=== PATIENT | male | born 1960 | race Caucasian/White ===

== ENCOUNTER 2024-05-08 11:39 | Inpatient (IN) | payer OTHER, SELFPAY ==
[2024-05-06] VITALS (8 sets, daily range): BP systolic 154–172; BP diastolic 77–104; BMI 38.8; BMI 37.9
[2024-05-06 17:50] LABS: % Basophils 0.4 % (0-2); % Eosinophils 1.1 % (0-6); % Immature Granulocytes 0.3 % (0-0.5); % Lymphocytes 19.3 % (20.5-51.1); % Monocytes 8.5 % (1.7-9.3); % Neutrophils 70.4 % (42.2-75.2); Absolute Eosinophils 0.1 10^3/uL (0-0.7); Absolute Monocytes 0.9 10^3/uL (0.1-0.6); Absolute Neutrophils 7.1 10^3/uL (1.4-6.5); Hematocrit 40.5 % (39.0-52.0); Mean Corp Hgb Conc. 32.1 g/dL (33.0-37.0); Mean Corpuscular Hgb 31.6 pg (27.0-31.0); Mean Corpuscular Volume 98.3 fL (80.0-94.0); Mean Platelet Volume 9.8 fL (7.4-10.4); Nucleated Red Blood Cells % 0 % (-); Platelet Count 217 10^3/uL (130-400); Red Blood Cell Count 4.12 10^6/uL (4.70-6.10); Red Cell Dist. Width 14.2 % (11.5-14.5); White Blood Cell Count 10.1 10^3/uL (4.8-10.8)
[2024-05-06 18:06] LABS: ALT (SGPT) 29 U/L (0-50); AST (SGOT) 30 U/L (17-59); Alkaline Phosphatase 58 U/L (38-126); Blood Urea Nitrogen 17 mg/dl (9-20); Calcium 9.2 mg/dl (8.4-10.2); Carbon Dioxide 30 mmol/L (22-30); Chloride 101 mmol/L (98-107); Glucose 126 mg/dl (70-99); Lipase 209 U/L (23-300); Potassium 4.6 mmol/L (3.5-5.1); Sodium 140 mmol/L (135-145); Total Bilirubin 0.5 mg/dl (0.2-1.3); Total Protein 7.5 g/dl (6.3-8.2); eGFR > 60.00
--- NOTE | 2024-05-06 19:46 | ED.GENMED ---
History of Present Illness
<Leisa Gandara PA-C - Last Filed: 05/06/24 23:57>
General
Chief Complaint: Abdominal Symptoms
Source: patient
Exam Limitations: none
Time Seen by Provider: 05/06/24 19:25
Nursing documentation reviewed up to this point in time: agreed with
History of Present Illness
History of Present Illness:
Patient is a 63-year-old male with no known past medical history presenting to the emergency department from his primary care provider's office due to abdominal distention. Patient states that over the past year he has noticed gradual increase in
size of his abdomen. He also has had shortness of breath with exertion. In addition�she has had significant swelling of his lower extremities.
He does believe that lower extremity swelling and abdominal distention has mildly the past month or so.
Patient denies any chest pain, abdominal pain, diarrhea/constipation, urinary symptoms. He denies any recent fever or chills.
Patient has not been seen by his primary care physician in over 2 years.
Review of Systems
<Leisa Gandara PA-C - Last Filed: 05/06/24 23:57>
Review of Systems
Allergies reviewed?: Yes
All Other Systems: ROS reviewed and negative except as documented in HPI and ROS
Phy Exam
<Leisa Gandara PA-C - Last Filed: 05/06/24 23:57>
Physical Exam
Physical Exam:
Vitals: Hypertensive, otherwise vital signs are stable. Afebrile
General: Patient is well appearing, no acute distress
Skin: Warm and dry, no rashes or lesions. Venous stasis changes of bilateral lower extremities.
Head: Normocephalic, atraumatic
Eyes: Sclera nonicteric. EOMs intact. No nystagmus.
Throat: Protecting airway
Neck: Normal ROM, no cervical spine tenderness, no meningismus
Cardiac: Regular rate and rhythm. Harsh midsystolic murmur at right upper sternal border.
Pulm: Mildly increased respiratory effort. Oxygen saturation 97% on room air. Fine crackles in bilateral lung bases. No wheezing
Abdomen: Abdomen distended. Soft and nontender. No CVA tenderness
Extremities: 2+ pitting edema bilateral lower extremities with chronic venous stasis changes. Palpable DP pulses bilaterally. Negative Homans' sign bilaterally.
Neuro: AAOx3. Grossly intact.
Psychiatric: Normal affect.
Course
<Leisa Gandara PA-C - Last Filed: 05/06/24 23:57>
Orders/Labs/Results
Orders:
Orders
05/06/24 Dinner
Cholesterol Lowering
At Your Request: Limited Participation
Cholesterol Lowering: Sodium, 2 Gram
05/06/24 17:28
Electrocardiogram (*1) Urgent
Reason for Study: Abdominal Pain
EKG- Treatment ONCE
05/06/24 17:41
Complete Blood Count/With Diff Urgent
Comprehensive Metabolic Panel Urgent
Lipase Urgent
05/06/24 19:43
CR Chest - 2 Views Urgent
Comment:
Reason For Exam: SOB,
05/06/24 19:51
NT-proBNP Urgent
Troponin I Urgent
05/06/24 20:31
Furosemide [Lasix] 40 mg IV NOW STA
05/06/24 21:25
Admit/Transfer Patient As Directed
Co-Sign Provider:
Level of Care: Observation services
Assign to:: Telemetry
Physician / Group: abdoulaye
Diagnosis: chf exacerbation
Reason for Telemetry: Acute Heart Failure
Date to Stop Telemetry: 05/09/24
Time to Stop Telemetry: 11:00
PRN Pain Medication Management As Directed
May give lesser potent ordered pain med per pt: Yes
preference::
Protocol:: Medication orders for pain may be administered in a
manner that supports deferring to patient preference
when the pt is:
- Requesting an ordered lesser potent pain medication.
Least to most potent pain medications are defined
as: acetaminophen < NSAID < tramadol < opioids
(morphine, oxycodone, hydromorphone).
- Requesting a lesser dose of the same medication IF
ORDERED.
- Requesting a less intrusive route of administration
if both routes are prescribed by the provider (PO <
IV).
05/06/24 21:26
Code Status As Directed
Resuscitation Status: Full Code
05/06/24 22:00
Flush (0.9% Sodium Chloride) [Flush (Nss)] See Dose Instructions IV PER PROTOCOL
05/06/24 22:32
Echo 2D MMode Color/Doppler Routine
Reason for Study: heart failure
Activity As Directed
Activity Level: As Tolerated
Intake/ Output As Directed
Frequency: q12h
Patient Education As Directed
Type: CHF folder
Comment: give on admission. Document in Interdisciplinary Education record
Sleep Apnea Assessment by RN As Directed
Comment:
Physician Instructions:
Vital Signs As Directed
Frequency: Other
Additional Instructions:: Q12 or per unit guidelines if more frequent.
Weight As Directed
Frequency: Daily
Type of Scale: Standing Scale
Comment: Daily morning weight. If unable to stand, use balanced bed scale.
Weight As Directed
Frequency: Once
Type of Scale: Standing Scale
Comment: Upon Admission. If unable to stand, use balanced bed scale.
Pulse Ox/cont/shift [RESP] Routine
Quantity: 1
Special Instructions: Daily pulse oximetry at rest. If greater than 92% at rest also obtain pulse oximetry
while ambulating as tolerated.
DX Deep Vein Thrombosis Video Routine
05/07/24 06:00
Complete Blood Count/With Diff IN AM
Comprehensive Metabolic Panel IN AM
05/07/24 08:00
Furosemide [Lasix] 40 mg IV DAILY
Heparin 5,000 units SC Q12
05/09/24 11:00
DC Protocol for Telemetry ONCE
Abnormal Lab Results
05/06/24
17:41
RBC 4.12 L 10^6/uL
(4.70-6.10)
MCV 98.3 H fL
(80.0-94.0)
MCH 31.6 H pg
(27.0-31.0)
MCHC 32.1 L g/dL
(33.0-37.0)
Absolute Neuts (auto) 7.1 H 10^3/uL
(1.4-6.5)
Absolute Monos (auto) 0.9 H 10^3/uL
(0.1-0.6)
Lymphocytes % 19.3 L %
(20.5-51.1)
Glucose 126 H mg/dl
(70-99)
05/06/24 17:41
05/06/24 17:41
Vital Signs
Initial and Last Documented VS:
Initial Vital Signs
Temp Pulse Resp BP Pulse Ox
98.5 F 96 16 170/101 97
05/06/24 17:23 05/06/24 17:23 05/06/24 17:23 05/06/24 17:23 05/06/24 17:23
Last Documented Vital Signs
Temp Pulse Resp BP Pulse Ox
98.3 F 96 18 155/81 95
05/06/24 22:40 05/06/24 22:40 05/06/24 22:40 05/06/24 22:40 05/06/24 22:40
<Misha Hui MD - Last Filed: 05/06/24 20:51>
Orders/Labs/Results
Orders:
Orders
05/06/24 Dinner
Cholesterol Lowering
At Your Request: Limited Participation
Cholesterol Lowering: Sodium, 2 Gram
05/06/24 17:28
Electrocardiogram (*1) Urgent
Reason for Study: Abdominal Pain
EKG- Treatment ONCE
05/06/24 17:41
Complete Blood Count/With Diff Urgent
Comprehensive Metabolic Panel Urgent
Lipase Urgent
05/06/24 19:43
CR Chest - 2 Views Urgent
Comment:
Reason For Exam: SOB,
05/06/24 19:51
NT-proBNP Urgent
Troponin I Urgent
05/06/24 20:31
Furosemide [Lasix] 40 mg IV NOW STA
05/06/24 21:25
Admit/Transfer Patient As Directed
Co-Sign Provider:
Level of Care: Observation services
Assign to:: Telemetry
Physician / Group: abdoulaye
Diagnosis: chf exacerbation
Reason for Telemetry: Acute Heart Failure
Date to Stop Telemetry: 05/09/24
Time to Stop Telemetry: 11:00
PRN Pain Medication Management As Directed
May give lesser potent ordered pain med per pt: Yes
preference::
Protocol:: Medication orders for pain may be administered in a
manner that supports deferring to patient preference
when the pt is:
- Requesting an ordered lesser potent pain medication.
Least to most potent pain medications are defined
as: acetaminophen < NSAID < tramadol < opioids
(morphine, oxycodone, hydromorphone).
- Requesting a lesser dose of the same medication IF
ORDERED.
- Requesting a less intrusive route of administration
if both routes are prescribed by the provider (PO <
IV).
05/06/24 21:26
Code Status As Directed
Resuscitation Status: Full Code
05/06/24 22:00
Flush (0.9% Sodium Chloride) [Flush (Nss)] See Dose Instructions IV PER PROTOCOL
05/06/24 22:32
Echo 2D MMode Color/Doppler Routine
Reason for Study: heart failure
Activity As Directed
Activity Level: As Tolerated
Intake/ Output As Directed
Frequency: q12h
Patient Education As Directed
Type: CHF folder
Comment: give on admission. Document in Interdisciplinary Education record
Sleep Apnea Assessment by RN As Directed
Comment:
Physician Instructions:
Vital Signs As Directed
Frequency: Other
Additional Instructions:: Q12 or per unit guidelines if more frequent.
Weight As Directed
Frequency: Daily
Type of Scale: Standing Scale
Comment: Daily morning weight. If unable to stand, use balanced bed scale.
Weight As Directed
Frequency: Once
Type of Scale: Standing Scale
Comment: Upon Admission. If unable to stand, use balanced bed scale.
Pulse Ox/cont/shift [RESP] Routine
Quantity: 1
Special Instructions: Daily pulse oximetry at rest. If greater than 92% at rest also obtain pulse oximetry
while ambulating as tolerated.
DX Deep Vein Thrombosis Video Routine
05/07/24 06:00
Complete Blood Count/With Diff IN AM
Comprehensive Metabolic Panel IN AM
05/07/24 08:00
Furosemide [Lasix] 40 mg IV DAILY
Heparin 5,000 units SC Q12
05/09/24 11:00
DC Protocol for Telemetry ONCE
Abnormal Lab Results
05/06/24
17:41
RBC 4.12 L 10^6/uL
(4.70-6.10)
MCV 98.3 H fL
(80.0-94.0)
MCH 31.6 H pg
(27.0-31.0)
MCHC 32.1 L g/dL
(33.0-37.0)
Absolute Neuts (auto) 7.1 H 10^3/uL
(1.4-6.5)
Absolute Monos (auto) 0.9 H 10^3/uL
(0.1-0.6)
Lymphocytes % 19.3 L %
(20.5-51.1)
Glucose 126 H mg/dl
(70-99)
05/06/24 17:41
05/06/24 17:41
Vital Signs
Initial and Last Documented VS:
Initial Vital Signs
Temp Pulse Resp BP Pulse Ox
98.5 F 96 16 170/101 97
05/06/24 17:23 05/06/24 17:23 05/06/24 17:23 05/06/24 17:23 05/06/24 17:23
Last Documented Vital Signs
Temp Pulse Resp BP Pulse Ox
98.3 F 96 18 155/81 95
05/06/24 22:40 05/06/24 22:40 05/06/24 22:40 05/06/24 22:40 05/06/24 22:40
<Leisa Gandara PA-C - Last Filed: 05/06/24 23:57>
MDM/Problems Addressed
Differential Diagnosis Includes:
Not limited to: New onset CHF, pneumonia, liver disease, nephrotic syndrome, chronic venous insufficiency, etc.
MDM/Problems Addressed:
63-year-old male presenting with abdominal distention and progressively worsening dyspnea over the past year. Seen by primary care today and sent to the emergency department. He does also have significant bilateral lower extremity swelling.
Denies any chest pain, cough, abdominal pain, vomiting. Patient is hypertensive, otherwise his vital signs are stable. He is not hypoxic. Physical exam as above. Patient has an obvious murmur, most notable at right upper sternal border. Fine
crackles throughout bilateral lung bases. He has significant 2+ pitting edema bilateral lower extremities with chronic venous insufficiency changes, as well. Palpable distal pulses. Abdomen is elevated BMI and distended although soft and
completely nontender. Patient appears clinically fluid overloaded. Given heart murmur�concern for possible new onset CHF secondary to valvular disease. Basic labs were obtained in triage without any clinically significant abnormalities. Will add
on troponin and proBNP. Will check chest x-ray. Given patient is afebrile with no leukocytosis and a benign abdominal exam�low suspicion for acute intra-abdominal infection�no indication for abdominal imaging at this time.
Chronic conditions affecting care:
N/A
Acute Exacerbation and/or Progression of Chronic Illness:
N/A
<Leisa Gandara PA-C - Last Filed: 05/06/24 23:57>
*Radiology
Radiology exam reviewed: preliminary read by ED provider (Reviewed by me-mild pulmonary edema) and radiology read reviewed
*Pulse Oximetry
Patient hypoxic: no
*EKG
Interpreted by ED Provider?: Yes
EKG Intrepretation Date: 05/06/24
Interpretation: normal
Comparison EKG: no comparison EKG present
Heart Rate: 100
Rate: normal
Rhythm: sinus
[place]: normal axis
Interval: normal interval
QRS Pattern: left vent hypertrophy
Ischemia: non-specific ST changes
*Sales Office Coordinator Interpretation
Rate: normal
Interpretation: normal
Heart Rate: 94
Rhythm: sinus
*Critical Care Note
Total Time (30-74mins, 75-104mins- exclusive of procedures): Not Applicable
<Leisa Gandara PA-C - Last Filed: 05/06/24 23:57>
Patient Management
Discussion with other providers: Hospitalist
Escalation/DeEscalation of care consider admission/obs:
Admit for IV diuresis, cardiology consult, echocardiogram
<Leisa Gandara PA-C - Last Filed: 05/06/24 23:57>
Update Note
Update Note:
Update: Troponin of 0.021. proBNP of 3170. Chest x-ray does show small bilateral pleural effusions and mild pulmonary vascular congestion. Cardiomegaly noted. Concern for possible new onset CHF secondary to valvular disease. Will give 40 IV
Lasix. Patient required mission to the hospital for diuresis, cardiology consult and likely echo. Patient accepted to hospitalist service in stable condition.
ED Attending Note
<Leisa Gandara PA-C - Last Filed: 05/06/24 23:57>
-
Portions of this chart may have been created with voice recognition software.� Occasional wrong word or��sound alike� substitutions may have occurred due to the inherent limitations of voice recognition software.
<Misha Hui MD - Last Filed: 05/06/24 20:51>
ED Attending Note
Patient seen and examined by attending physician: Yes
I performed the substantive portion of visit, reviewed & personally made and approve the management plan that is documented in note by myself or CAROL.: Yes
ED Attending Note:
63-year-old male sent in for vague upper abdominal symptoms but mostly seems to be describing shortness of breath with exertion. Ongoing for the last month. Poor historian. No true abdominal pain no fever no chest pain.
On exam patient is mildly disheveled appearing. He has minimal crackles in both bases with mild tachypnea at rest. He has a harsh midsystolic murmur that radiates to his back and right upper chest. Abdomen is elevated BMI but soft and nontender.
Significant lower extremity edema chronic in appearance bilaterally.
EKG is consistent with LVH. Chest x-ray is consistent with some CHF. Highly suspicious that he is in some heart failure secondary to her valvular issue. Warrants inpatient workup and management.
Discharge Plan
Departure
Patient Disposition: Admit
Date of Disposition: 05/06/24
Time of Disposition: 20:51
Presentation/result/management discussed w/ accepting MD/DO: Hospitalist
Discharge Problem:
Dyspnea, Suspected new onset CHF
Interventions
Interventions:
*Risk Screen - Suicide Last Done: 05/06/24 22:44
*General Assessment Last Done: 05/06/24 17:23
*Neglect/Abuse Screening Last Done: 05/06/24 17:23
*ED COVID-19 Vaccine History Last Done: 05/06/24 22:44
*Nursing Disposition Last Done: 05/06/24 22:31
GZ-Guvsjh-Regdqhoopj Assessment Last Done: 05/06/24 19:40
Discharge Date and Time
Discharge Date/Time: 05/06/24 22:32
[2024-05-06 20:19] LABS: NT-proBNP 3170 pg/ml; Troponin I 0.021 ng/ml
[2024-05-06] MEDS: LASIX 40 MG IV (21:00)
--- NOTE | 2024-05-06 21:30 | HPS.HSE ---
Family Physician
-
Family Physician: Misha Hong
Chief Complaint
-
shortness of breath
History of Present Illness
63-year-old male medical history of HTN presenting with abdominal distention. Over the past year he has noticed gradual increase in the size of his abdomen. He has shortness of breath with exertion and shallow breaths. He has significant swelling
of his lower extremities and feels like the legs are breaking down. He denies any chest pain, abdominal pain, diarrhea constipation, urinary symptoms. He denies any fevers or chills. He has not seen his primary care physician in 2 years.
He denies any history of lung or heart problems.
He used to drink alcohol in the past. He denies smoking.
Medical History
Past Medical History
Past Medical History: Reports HTN
Past Surgical History: Reports Other (Cholecystectomy, scalp surgery)
Social History
Tobacco: Non-smoker
Alcohol: Former
Drug: None
Family History
Family History: Not pertinent
Allergies / Home Medications
Allergies reflects when Allergies were last updated in [facility].
Home Medications with original date entered in [facility]
Allergy/Medication List:
Allergies
Allergy/AdvReac Type Severity Reaction Status Date / Time
No Known Allergies Allergy Unverified 05/06/24 17:28
Home Medications
No Meds [No Current Medications] 05/06/24
Review of Systems
-
History Source: Patient
A 12 point ROS was completed and negative except as noted: Yes
Constitutional: Reports No Symptoms
EENT: Reports No Symptoms
Respiratory: Reports See HPI
Cardiac: Reports See HPI
Abdomen/GI: Reports No Symptoms
: Reports No Symptoms
Musculoskeletal: Reports No Symptoms
Skin: Reports No Symptoms
Neurological: Reports No Symptoms
Endocrine: Reports No Symptoms
Hematologic/Lymphatic: Reports No Symptoms
Psych: Reports No Symptoms
Physical Exam
Vital Signs
Vital Signs
Temp Pulse Resp BP Pulse Ox
98.5 F 92 24 172/104 97
05/06/24 19:50 05/06/24 21:00 05/06/24 20:59 05/06/24 21:00 05/06/24 20:59
Physical Exam
General: Well Developed, Well Nourished and No Apparent Distress
HEENT: NormoCephalic, Moist mucous membranes and Atraumatic
Respiratory: Rales
Cardiac: S1/S2 and Regular Rhythm; No Murmur or Rub
GI: Soft, Non Tender, Non Distended and Normal Bowel Sounds; No Organomegaly
Rectal: Deferred by Provider
Musculoskeletal: No Clubbing, No Cyanosis and No Edema
Skin: No Rash
Neuro: Nonfocal/grossly intact
Laboratory Results
-
05/06/24 17:41
05/06/24 17:41
Laboratory Results
Total Bilirubin 0.5 mg/dl (0.2-1.3) 05/06/24 17:41
AST 30 U/L (17-59) 05/06/24 17:41
ALT 29 U/L (0-50) 05/06/24 17:41
Alkaline Phosphatase 58 U/L (38-126) 05/06/24 17:41
Troponin I 0.021 ng/ml 05/06/24 19:51
Lipase 209 U/L (23-300) 05/06/24 17:41
Data Reviewed
-
Lab Data: Labs Reviewed by me
Old Records: Reviewed
Impression/Plan
-
IMPRESSION:
PLAN:
# Acute on chronic CHF exacerbation
-Cardiac BNP of 3000
-EKG shows normal sinus rhythm
-Chest x-ray shows small bilateral pleural effusions, mild pulmonary vascular congestion
-Check I's and O's, daily weight
-Lasix 40 IV daily
-Check echo
-Cardiology consulted
#Uncontrolled HTN
-monitor with lasix
# Chronic lymphedema
-no sign of infection
Full code
DVT prophylaxis�heparin
Cardiac diet
[2024-05-07] VITALS (7 sets, daily range): BP systolic 116–168; BP diastolic 78–95; BMI 37.3
[2024-05-07] MEDS: HEPARIN 5000 UNITS SC (08:14)
[2024-05-07] MEDS: LASIX 40 MG IV ×2 (08:14→16:07)
[2024-05-07 08:27] LABS: % Basophils 0.4 % (0-2); % Eosinophils 1.2 % (0-6); % Immature Granulocytes 0.3 % (0-0.5); % Lymphocytes 14.2 % (20.5-51.1); % Monocytes 8.5 % (1.7-9.3); % Neutrophils 75.4 % (42.2-75.2); Absolute Eosinophils 0.1 10^3/uL (0-0.7); Absolute Lymphocytes 1.3 10^3/uL (1.2-3.4); Absolute Monocytes 0.8 10^3/uL (0.1-0.6); Absolute Neutrophils 6.7 10^3/uL (1.4-6.5); Hematocrit 38.9 % (39.0-52.0); Hemoglobin 12.8 g/dL (13.0-18.0); Mean Corp Hgb Conc. 32.9 g/dL (33.0-37.0); Mean Corpuscular Hgb 32.3 pg (27.0-31.0); Mean Corpuscular Volume 98.2 fL (80.0-94.0); Mean Platelet Volume 10.2 fL (7.4-10.4); Nucleated Red Blood Cells % 0 % (-); Platelet Count 213 10^3/uL (130-400); Red Blood Cell Count 3.96 10^6/uL (4.70-6.10); Red Cell Dist. Width 14.2 % (11.5-14.5); White Blood Cell Count 8.9 10^3/uL (4.8-10.8)
[2024-05-07 08:43] LABS: Troponin I 0.016 ng/ml
--- NOTE | 2024-05-07 09:11 | CON.CAR ---
Addendum entered and electronically signed by Octavio Cheung MD 05/07/24 14:37:
I saw and examined the patient.
The [employer]'s note was reviewed and I agree with the note.
Comment: Briefly, 64-year-old man with no significant past medical history who presented to primary care physician's office with worsening abdominal distention/bloating and lower extremity edema which has progressed over the last several months.
With concern for decompensated heart failure patient was referred to [facility] emergency department for further evaluation.
Presentation is consistent with acute decompensated heart failure with significant peripheral edema on physical exam, mild pulmonary edema by chest x-ray and elevated BNP
Identified as having severe aortic stenosis by transthoracic echocardiogram which is a new diagnosis. Preserved LV systolic function with severe eccentric hypertrophy.
Plan for IV diuresis twice daily, explained to patient that he will need at least several days of IV diuretic here
Monitor daily standing weights as well as renal function/electrolytes
Salt/fluid restriction
CHF education
Continue Tubigrip's
Given severe aortic stenosis will engage CT surgery
Rest per Jill Fernandez
Original Note:
Consultation
Consultation Request
Date/Time Consultation Performed: 05/07/24
Requesting Provider: Dr. Dumont
Performing Provider: Jill Fernandez PA-C for Dr. Cheung
Reason for Consultation: CHF
Medical History
-
Chief Complaint: abd bloating, LE edema
History of Present Illness:
Patient is a 64-year-old male without reported significant past medical history who presented to [facility] ER upon referral of his primary care physician, Dr. Misha Hong after patient had presented to his office complaining of 3 to 6
months of worsening abdominal bloating and lower extremity edema. He reported associated shortness of breath with exertion requiring him to stop at rest and some associated chest pressure, however never any chest pain. He denies orthopnea. He is
not on diuretic therapy as an outpatient. proBNP 3170. Chest x-ray with small bilateral pleural effusions and mild pulmonary vascular congestion. Also noted to have murmur, patient denies known history of this. Cardiology consulted for
evaluation of new heart failure.
PMH:
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
History of past alcohol use
Obesity
Past Medical History
Past Medical History: Other (in HPI)
Social History
Tobacco: Non-Smoker
Alcohol: Former (now rare)
Living: Alone
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
Family History
Family History: Reviewed & Not Pertinent
Allergies / Home Medications
Allergy/AdvReac Type Severity Reaction Status Date / Time
No Known Allergies Allergy Unverified 05/06/24 17:28
�Medication �Instructions �Recorded �Confirmed �Type
No Meds [No Current Medications] 05/06/24 05/06/24 History
Review of Systems
-
History Source: Patient
All other systems: Negative unless noted
Physical Exam
Vital Signs
Temp Pulse Resp BP Pulse Ox
97.9 F 89 18 160/95 95
05/07/24 08:00 05/07/24 08:00 05/07/24 08:00 05/07/24 08:00 05/07/24 08:00
Lab Results
05/07/24 07:53
Troponin I 0.016 ng/ml 05/07/24 07:53
Erm-C-Swommdmgqdr Pept 3170 pg/ml 05/06/24 19:51
Physical Exam
General: No Apparent Distress, Comfortable and Other (obese. unkept appearing)
HEENT: Normocephalic, Anicteric and Moist Mucous Membranes
Respiratory: Clear and Non Labored Respirations
Cardiac: S1/S2, Regular Rhythm and Murmur
GI: Soft, Non Tender, Normal Bowel Sounds and Distended
Musculoskeletal: No Clubbing, No Cyanosis and Edema (4+ edema of B/L LE)
Skin: Warm, Dry and Other (thickened skin of B/L LE)
Neuro: AO x 3
Impression / Plan
-
Primary Cook Helper Fruit: none prior to admission
PCP: Dr. Misha Hong
Assessment:
Presentation with abd bloating, LE edema
Acute CHF, unknown type
Cardiac murmur
LVH
HTN
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
History of past alcohol use
Obesity
ECHO 05/07/24: pending
Plan:
-Patient presents with abdominal bloating and lower extremity edema worsening over the last 3 to 6 months, consistent with acute heart failure of unknown type. Also with cardiac murmur on exam, so suspected valvular disease contributing to heart
failure.
-IV Lasix diuresis, increased dose to 40mg IV BID.
-tubigrips ordred by me
-Cr stable at 0.9
-Check echo
-CHF education. We did discuss importance of salt and fluid restrictions moving forward
-Add beta-leti. Follow blood pressure trends
-Troponin peaked at 0.021.
-Check CVE
-further recommendations will be based on results of echo
Data Reviewed
-
EKG: Tracing Personally Visualized and interpreted
Radiology: Report Reviewed by me
Labs: Labs Reviewed by me
Old Records: Reviewed
[2024-05-07 09:58] LABS: ALT (SGPT) 26 U/L (0-50); AST (SGOT) 25 U/L (17-59); Albumin 3.9 g/dl (3.5-5.0); Alkaline Phosphatase 62 U/L (38-126); Blood Urea Nitrogen 16 mg/dl (9-20); Calcium 9.1 mg/dl (8.4-10.2); Carbon Dioxide 29 mmol/L (22-30); Chloride 98 mmol/L (98-107); Estimated Creatinine Clearance 113 ml/min; Glucose 127 mg/dl (70-99); Potassium 4.3 mmol/L (3.5-5.1); Sodium 140 mmol/L (135-145); Total Bilirubin 0.9 mg/dl (0.2-1.3); Total Protein 7.1 g/dl (6.3-8.2); eGFR > 60.00
[2024-05-07 10:02] LABS: HDL Cholesterol 39 mg/dl; LDL Cholesterol, Calculated 98 mg/dl; Total Cholesterol 149 mg/dl (50-199); Triglyceride 64 mg/dl (10-149); Very Low Density Lipoprotein 12 mg/dl (0-30)
[2024-05-07] MEDS: COREG 6.25 MG PO ×2 (10:18→21:15)
--- NOTE | 2024-05-07 11:07 | CONSULT.CT ---
Consultation
-
Date/Time Consultation Requested: 05/07/2024
Date/Time Consultation Performed: 05/07/2024
Requesting Provider: Dr. Sena
Performing Provider: Ale norris
Reason for Consultation: Evaluation for aortic stenosis /TAVR vs SAVR
Patient History
Physicians
Family Physician: Dr. Misha Hong(no visits for past 2 years)
Outpatient Bungy Jump Master: n/a
Inpatient Bungy Jump Master: Dr. Cheung
History of Present Illness
Patient is a 64-year-old male who is a very poor historian. He has not seen his family doctor in approximately 2 years. He presented to [facility] ER after presenting to his primary care physician complaining of 3 to 6 months of worsening
abdominal bloating and lower extremity edema. He reports shortness of breath with exertion which has gotten worse. He occasionally complains of chest pressure. He denies orthopnea. Pro BNP is 3170 and chest x-ray showed bilateral pleural
effusions and mild pulmonary vascular congestion. He was also found to have a murmur which he was unaware of. He was admitted and treated for acute on chronic heart failure exacerbation. He underwent echocardiogram on 05/07/2024 which showed
normal LV size and systolic function. No regional wall motion abnormalities. Left ventricular ejection fraction of 55%. Severe concentric LVH. Severe aortic stenosis with peak and mean gradients of 87/56 mmHg. Aortic valve area was 0.8 cm�.
Cardiothoracic surgery was consulted for evaluation of aortic valve replacement versus TAVR.
Preoperative studies will be ordered and along with dental evaluation. He is scheduled for a catheterization on Saturday. All studies will be reviewed and attending cardiothoracic surgeon will discuss plan and timing with patient next week.
Past Medical History
Past Medical History: BPH, CHF, WORLEY, HTN, SOB and Valvular Disease (Aortic stenosis, morbid obesity, history of past alcohol use, chronic lymphedema,)
Past Surgical History
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
Left middle finger surgery next hernia repair
Dental History
Poor dentition
Family History
Mother: at Age
Father: at Age
Social History
Alcohol: Former (History of alcohol abuse, reports being sober for 10 years)
Drug: None
Tobacco: Non-Smoker
Personal: Single (Denies family or social support.)
Living: Alone
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
Covid Vaccination History:
Denies COVID infection in the past
Reports no COVID-vaccine
Allergies
Allergy/AdvReac Type Severity Reaction Status Date / Time
No Known Allergies Allergy Unverified 05/06/24 17:28
Home Medications
�Medication �Instructions �Recorded �Confirmed �Type
No Meds [No Current Medications] 05/06/24 05/06/24 History
Review of Systems
-
Unable to obtain full review of systems at this time due to: Other (Patient was very poor historian, he spoke slowly and at times had difficulty remembering.)
History Source: Patient
General: Reports Weight Gain and Fatigue
HEENT: Reports No Symptoms
Respiratory: Reports SOB and WORLEY
Cardiac: Reports Palpitations and Edema (Worsening lower extremity edema over past 3 to 6 months, worsening abdominal bloating)
Abdomen/GI: Reports Other (Abdominal bloating increased over the past 3 to 6 months)
: Reports Nocturia
Musculoskeletal: Reports Edema
Skin: Reports No Symptoms
Neurological: Reports Other (During questioning of past medical history patient seems to have some degree of memory loss.)
Vascular: Reports No Symptoms
Physical Exam
Vital Signs
Temp 97.9 F 05/07/24 08:00
Temp route: Oral 05/07/24 08:00
Pulse 89 05/07/24 08:00
Rhythm: Normal sinus rhythm 05/07/24 07:55
Resp Rate 18 05/07/24 08:00
Blood pressure 160/95 05/07/24 08:00
Blood pressure extremity used: Left upper arm 05/07/24 08:00
Position: Sitting 05/07/24 08:00
MAP (cuff-Mike Monitor) 100 05/06/24 22:00
SaO2 95 05/07/24 08:00
Oxygen Mode of Delivery Room air 05/07/24 08:00
Can the patient verbally communicate their pain? Yes 05/06/24 22:50
Actual Weight 274 lb 9.6 oz 05/07/24 05:42
Body Mass Index (BMI) 37.3 05/07/24 05:42
Labs
05/07/24 07:53
05/07/24 07:53
Troponin I 0.016 ng/ml 05/07/24 07:53
Nnp-V-Fgjzgimaeii Pept 3170 pg/ml 05/06/24 19:51
Exam
General: No Apparent Distress, Comfortable and Other (Patient sitting in bed, appears unkempt)
HEENT: Anicteric and Atraumatic
Neck: Carotid Bruit (Bilateral carotid bruits versus transmitted murmur of aortic stenosis) and Trachea Midline
Respiratory: Clear
Cardiac: Regular Rhythm and Murmur (Loud Blowing systolic murmur heard best at left sternal border)
GI: Soft, Non Tender, Normal Bowel Sounds and Other (Morbidly obese)
Rectal: Deferred by Provider
Skin: Warm and Dry
Neuro: Awake, Alert, Oriented and Other (During questioning appeared to speak slowly and have subtle episodes of difficulty with his memory.)
Extremities: Lower Level Edema (Chronic lower extremity edema 3+) and Pulses (Distal pulses intact bilaterally, dorsalis pedis 1-2+ bilaterally, right leg/foot cool compared to left leg, feet cool and dry, skin extremely dry and scaly, no visible
ulcerations on soles of feet or heels.)
Lymph: No Lymphadenopathy
Psych: Calm
Assessment / Plan
-
Assessment:
Acute on chronic heart failure exacerbation-continue to optimize medical management
Severe aortic stenosis with peak and mean gradients of 87/56 mmHg, aortic valve area 0.8 cm�, mild aortic regurgitation
Hypertension
Obesity
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
History of alcohol abuse, sober x 10 years
Chronic lymphedema
Plan: Preoperative studies ordered
Will order TAVR CT
May benefit from care management consult for discharge planning
Dental evaluation
All studies to be reviewed by attending cardiothoracic surgeon and will discuss with the patient next week.
--- NOTE | 2024-05-07 12:28 | CM ---
Pt seen bedside. Pt lives alone in [address] [facility] apartment
Independent, denies any DME use for ambulating or daily functioning
Denies SNF/VN/PT hx
Address and point of contact verified. Pt states he does not have active insurance but receives social security
PCP: Dr. Misha Hong
Pharmacy: [facility]
Pt currently OBS status. OOBS form reviewed, pt given copy. Copy placed in chart
Per pt he drove himself here and can transport self home at d/c.
Plan: Home; no needs anticipated
CM will cont. to follow for poss d/c needs
[2024-05-07 14:51] LABS: Glycohemoglobin (HgbA1c) 7.9 % (4.0-5.6)
[2024-05-07 16:56] LABS: Glucose - Point of Care 155 mg/dl (70-99)
--- NOTE | 2024-05-07 17:02 | PTCARENOTE ---
Abhay Aguilera was notified of pt's 24mmHg difference in Blood pressures in upper arms.
[2024-05-07] MEDS: NOVOLOG FLEXPEN-LOW RESISTANCE 1 UNITS SC (17:50)
[2024-05-07] MEDS: GLUCOPHAGE 500 MG PO (17:51)
[2024-05-07] MEDS: LOVENOX 40 MG SC (17:51)
--- NOTE | 2024-05-07 17:53 | W.PN.HOSP.TC ---
Today's Communication/Plan
-
diuresis
Assessment / Plan
Assessment / Plan
63-year-old male with shortness of breath also edema of lower extremities he has not seen a physician in 2 years
Echo 05/07/2024 normal LV size and systolic function. EF 55 to 60% severe concentric LVH. Stage II diastolic dysfunction suggestive of abnormal relaxation. Severe aortic stenosis
CVS: S1-S2 normal, systolic murmur at aortic area
Chest: Bilateral rales
Abdomen: Soft, NT / Bowel sounds present
Extremities: Bilateral lower EXTR edema
Obese
# Acute HFpEF
BNP 3170
Chest x-ray reviewed by me with bilateral pleural effusions and pulmonary vascular congestion
Continue Lasix 40 mg IV BID
Check echo
Intake output charting and daily weights
CHF education
Cardiology evaluation
# Poorly controlled hypertension
Continue IV Lasix
Start Coreg 6.25 twice daily
Case management consulted to check pricing for SGLT2 inhibitors
# New diagnosis of diabetes-hemoglobin A1c 7.9. Diabetic education, dietary consult. Accu-Cheks and sliding scale coverage. Start metformin. Will also start SGLT2 inhibitors once pricing is obtained
# Severe aortic stenosis-CT surgery evaluation. CT scan,Carotid ultrasound, panelipse x-ray ordered by CT surgery
# Chronic lymphedema lower extremities
# Obesity with a BMI of 37
# History of past alcohol abuse
# DVT prophylaxis-subcutaneous Lovenox
# Full code
Discussed with nursing
Anticipated Discharge: 24 - 48 hours
Subjective/Interval History
-
Date of Service: May 07, 2024
Objective Data
-
Labs:
Laboratory Results
05/07/24
07:53
WBC 8.9
Hgb 12.8 L
Hct 38.9 L
Plt Count 213
Sodium 140
Potassium 4.3
Chloride 98
Carbon Dioxide 29
BUN 16
Creatinine 0.9
Glucose 127 H
Calcium 9.1
Total Bilirubin 0.9
AST 25
ALT 26
Alkaline Phosphatase 62
Vital Signs:
Vital Signs
Temp Pulse Resp BP Pulse Ox
98.7 F 91 20 140/83 96
05/07/24 16:27 05/07/24 11:57 05/07/24 16:27 05/07/24 16:26 05/07/24 16:27
I&O
05/06/24 05/07/24 05/08/24
06:59 06:59 06:59
Intake Total 480 / 480
Balance 480 / 480
[2024-05-07 22:09] LABS: Glucose - Point of Care 169 mg/dl (70-99)
[2024-05-08 03:52] VITALS: BP 138/72
[2024-05-08 05:52] VITALS: BMI 36.9
[2024-05-08 07:06] VITALS: BP 159/88
[2024-05-08 07:08] LABS: Hematocrit 37.2 % (39.0-52.0); Hemoglobin 12.6 g/dL (13.0-18.0); Mean Corp Hgb Conc. 33.9 g/dL (33.0-37.0); Mean Corpuscular Hgb 32.7 pg (27.0-31.0); Mean Corpuscular Volume 96.6 fL (80.0-94.0); Mean Platelet Volume 10.3 fL (7.4-10.4); Platelet Count 213 10^3/uL (130-400); Red Blood Cell Count 3.85 10^6/uL (4.70-6.10); Red Cell Dist. Width 14.1 % (11.5-14.5); White Blood Cell Count 9.5 10^3/uL (4.8-10.8)
[2024-05-08 07:20] LABS: Glucose - Point of Care 163 mg/dl (70-99)
[2024-05-08 07:33] LABS: ALT (SGPT) 21 U/L (0-50); AST (SGOT) 21 U/L (17-59); Albumin 3.8 g/dl (3.5-5.0); Alkaline Phosphatase 55 U/L (38-126); Blood Urea Nitrogen 21 mg/dl (9-20); Calcium 9.2 mg/dl (8.4-10.2); Carbon Dioxide 29 mmol/L (22-30); Chloride 96 mmol/L (98-107); Direct Bilirubin 0.2 mg/dl (0.0-0.4); Estimated Creatinine Clearance 101 ml/min; Glucose 139 mg/dl (70-99); Potassium 4.2 mmol/L (3.5-5.1); Sodium 138 mmol/L (135-145); Total Bilirubin 0.8 mg/dl (0.2-1.3); eGFR > 60.00
[2024-05-08 08:03] LABS: Magnesium 1.7 mg/dl (1.6-2.3)
[2024-05-08] MEDS: COREG 6.25 MG PO (08:58)
[2024-05-08] MEDS: GLUCOPHAGE 500 MG PO ×2 (08:58→17:07)
[2024-05-08] MEDS: NOVOLOG FLEXPEN-LOW RESISTANCE 1 UNITS SC (08:58)
[2024-05-08] MEDS: LASIX 40 MG IV ×2 (08:58→15:49)
--- NOTE | 2024-05-08 09:15 | W.PN.CARDCBS ---
Addendum entered and electronically signed by Octavio Cheung MD 05/08/24 18:49:
I saw and examined the patient on morning rounds.
The Risk Modeler's note was reviewed and I agree with the note.
Comment: Briefly, 64M presenting in decompensated HF found to have severe aortic stenosis
Remains volume overloaded on exam with significant peripheral edema
Cont IV diuresis twice daily, suspect he will need at least several days of IV diuretic here
Monitor daily standing weights as well as renal function/electrolytes
Salt/fluid restriction
CHF education
Continue Tubigrip's
Appreciate CT surgery input regarding AVR work up
Rest per Savannah Collier
Original Note:
Today's Communication / Plan
-
Continue with IV lasix 40mg BID
Increase coreg to 12.5mg BID
CT surgery eval ongoing for severe
Cost of SGLT2 inhibitor being assessed by CM
Impression / Plan
-
Primary School Principal: none prior to admission
PCP: Dr. Misha Hong
Assessment:
Presentation with abd bloating, LE edema
Acute HFpEF
Severe by echo 05/07/2024
LVH
HTN
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
History of past alcohol use
Obesity
ECHO 05/07/24: EF 55-60%, severe cLVH w/ septum (2.2cm) thicker than posterior wall (2.0cm), stage II diastolic dysfunction, severe with peak/mean gradients 87/56 mmHg, BEATRIZ 0.8 cm2
Plan:
-Presented with abdominal bloating and LE edema that had been progressing over the past 3-6 months. Admitted with acute HFpEF
-Diuresing with IV lasix 40mg BID. Not on lasix prior to admission.
-Weight down 3lbs overnight, down to 271lbs 05/08. Creat stable at 1.0.
-Continue daily weights, I&Os.
-Echo 05/07 with preserved EF with severe LVH and severe as noted above. CT surgery consulted and evaluation is ongoing.
-CHF education.
-Continue Coreg. BP remains elevated, will increase dose to 12.5mg BID
-Case management to assess the cost of SGLT2 inhibitor.
Progress Note - School Principal
Subjective
Date of Service: May 08, 2024
Still w/ edema, no SOB.
Objective
Labs:
05/08/24 06:32
05/08/24 06:32
Labs
Hgb 12.6 g/dL (13.0-18.0) L 05/08/24 06:32
Hct 37.2 % (39.0-52.0) L 05/08/24 06:32
Plt Count 213 10^3/uL (130-400) 05/08/24 06:32
Sodium 138 mmol/L (135-145) 05/08/24 06:32
Potassium 4.2 mmol/L (3.5-5.1) 05/08/24 06:32
BUN 21 mg/dl (9-20) H 05/08/24 06:32
Creatinine 1.0 mg/dL (0.7-1.3) 05/08/24 06:32
Glucose 139 mg/dl (70-99) H 05/08/24 06:32
Troponins
05/06/24 05/07/24
19:51 07:53
Troponin I 0.021 0.016
Vital Signs and I&O:
Vital Signs
Temp Pulse Resp BP Pulse Ox
98 F 85 18 159/88 96
05/08/24 07:06 05/08/24 07:06 05/08/24 07:06 05/08/24 07:06 05/08/24 07:06
Vital Signs
Temp Pulse Resp BP Pulse Ox
98 F 85 18 159/88 96
05/08/24 07:06 05/08/24 07:06 05/08/24 07:06 05/08/24 07:06 05/08/24 07:06
Intake & Output
05/06/24 05/07/24 05/08/24 05/09/24
06:59 06:59 06:59 06:59
Intake Total 480 / 480 1320 / 1320
Balance 480 / 480 1320 / 1320
Physical Exam
Physical Exam
GEN: No distress, awake, alert, oriented x3
HEENT: supple, anicteric, mmm
LUNGS: CTA b/l, no wheezes/rales
CV: Reg, S1/S2, 3/6 syst LSB
EXT: No clubbing, or cyanosis, +2 edema b/l LE
NEURO: Gross non-focal
SKIN: Warm, dry, no rash
--- NOTE | 2024-05-08 11:35 | W.PN.HOSP.TC ---
Today's Communication/Plan
-
Continue diuresis
Case management to check SGLT2 pricing
Assessment / Plan
Assessment / Plan
63-year-old male with shortness of breath also edema of lower extremities he has not seen a physician in 2 years
Echo 05/07/2024 normal LV size and systolic function. EF 55 to 60% severe concentric LVH. Stage II diastolic dysfunction suggestive of abnormal relaxation. Severe aortic stenosis
CVS: S1-S2 normal, systolic murmur at aortic area
Chest: Bilateral rales
Abdomen: Soft, NT / Bowel sounds present
Extremities: Bilateral lower EXTR edema
Obese
# Acute HFpEF
BNP 3170
Chest x-ray reviewed by me with bilateral pleural effusions and pulmonary vascular congestion
Continue Lasix 40 mg IV BID
Echo as above
Intake output charting and daily weights
CHF education
Cardiology evaluation appreciated
# Poorly controlled hypertension
Continue IV Lasix
Started Coreg 6.25 twice daily
Case management consulted to check pricing for SGLT2 inhibitors
# New diagnosis of diabetes-hemoglobin A1c 7.9. Diabetic education, dietary consult. Accu-Cheks and sliding scale coverage. Started metformin. Will also start SGLT2 inhibitors once pricing is obtained
# Severe aortic stenosis-CT surgery evaluation. CT scan,Carotid ultrasound, panelipse x-ray ordered by CT surgery
# Chronic lymphedema lower extremities- Compression stockings
# Obesity with a BMI of 37
# History of past alcohol abuse
# DVT prophylaxis-subcutaneous Lovenox
# Full code
Discussed with nursing
Called Brother's number- Non working.
Anticipated Discharge: > 48 hours
Subjective/Interval History
-
Date of Service: May 08, 2024
Objective Data
-
Labs:
Laboratory Results
05/08/24
06:32
WBC 9.5
Hgb 12.6 L
Hct 37.2 L
Plt Count 213
Sodium 138
Potassium 4.2
Chloride 96 L
Carbon Dioxide 29
BUN 21 H
Creatinine 1.0
Glucose 139 H
Calcium 9.2
Total Bilirubin 0.8
AST 21
ALT 21
Alkaline Phosphatase 55
Vital Signs:
Vital Signs
Temp Pulse Resp BP Pulse Ox
98 F 85 18 159/88 96
05/08/24 07:06 05/08/24 07:06 05/08/24 07:06 05/08/24 07:06 05/08/24 08:45
I&O
05/07/24 05/08/24 05/09/24
06:59 06:59 06:59
Intake Total 480 / 480 1320 / 1320
Balance 480 / 480 1320 / 1320
[2024-05-08 12:05] LABS: Glucose - Point of Care 133 mg/dl (70-99)
[2024-05-08] MEDS: NOVOLOG FLEXPEN-LOW RESISTANCE SC (12:16)
[2024-05-08] MEDS: MAGNESIUM OXIDE 500 MG PO (12:16)
--- NOTE | 2024-05-08 13:38 | W.PN.UPDATE ---
Update Note
Progress Note Update
SAVR vs TAvr evaluatio in progress. LHC is scheduled for saturday and TAVR CT is pending.
--- NOTE | 2024-05-08 14:19 | PTCARENOTE ---
Met with Mr. Rice to educate him on blood glucose monitoring. Mr. Rice demonstrated proper set up and use of the Contour Next Ez glucometer. We discussed importance of monitoring blood sugar twice a day; fasting, 2 hours post meal daily (alternate
meal) and as needed based on provider recommendations. I provided Mr. Rice with a form to record his numbers and a note in his chart to order Contour next test strips and microlet lancets prior to his discharge. Safe sharp disposal was also
discussed.
[2024-05-08 15:00] VITALS: BP 132/69
[2024-05-08 16:53] LABS: Glucose - Point of Care 231 mg/dl (70-99)
[2024-05-08] MEDS: NOVOLOG FLEXPEN-LOW RESISTANCE 2 UNITS SC (17:07)
[2024-05-08] MEDS: LOVENOX 40 MG SC (17:08)
[2024-05-08 19:20] VITALS: BP 139/85
[2024-05-08] MEDS: COREG 12.5 MG PO (20:13)
[2024-05-08] MEDS: DESENEX/MITRAZOL/ZEASORB 1 APPLIC TOPICAL (20:14)
[2024-05-08 21:29] LABS: Glucose - Point of Care 151 mg/dl (70-99)
[2024-05-08 23:15] VITALS: BP 129/83
[2024-05-09 03:10] VITALS: BP 136/79
[2024-05-09 06:00] VITALS: BMI 36.3
[2024-05-09 07:00] VITALS: BP 125/82
[2024-05-09 07:25] LABS: Mean Corp Hgb Conc. 33.3 g/dL (33.0-37.0); Mean Corpuscular Hgb 32.3 pg (27.0-31.0); Mean Platelet Volume 10.5 fL (7.4-10.4); Platelet Count 233 10^3/uL (130-400); Red Blood Cell Count 4.02 10^6/uL (4.70-6.10); Red Cell Dist. Width 13.9 % (11.5-14.5); White Blood Cell Count 9.2 10^3/uL (4.8-10.8)
[2024-05-09 07:29] LABS: Glucose - Point of Care 122 mg/dl (70-99)
[2024-05-09] MEDS: MAGNESIUM OXIDE 500 MG PO (07:55)
[2024-05-09] MEDS: NOVOLOG FLEXPEN-LOW RESISTANCE SC ×2 (07:55→16:55)
[2024-05-09] MEDS: DESENEX/MITRAZOL/ZEASORB 1 APPLIC TOPICAL ×2 (07:55→19:48)
[2024-05-09] MEDS: LASIX 40 MG IV ×2 (07:55→16:56)
[2024-05-09] MEDS: GLUCOPHAGE 500 MG PO ×2 (07:55→16:56)
[2024-05-09] MEDS: COREG 12.5 MG PO ×2 (07:55→19:44)
[2024-05-09 08:04] LABS: Blood Urea Nitrogen 23 mg/dl (9-20); Calcium 9.4 mg/dl (8.4-10.2); Carbon Dioxide 31 mmol/L (22-30); Chloride 96 mmol/L (98-107); Estimated Creatinine Clearance 91 ml/min; Glucose 131 mg/dl (70-99); Magnesium 1.8 mg/dl (1.6-2.3); Potassium 4.6 mmol/L (3.5-5.1); Sodium 138 mmol/L (135-145); eGFR > 60.00
--- NOTE | 2024-05-09 10:00 | W.PN.CARDCBS ---
Addendum entered and electronically signed by Jacob Vigil DO 05/09/24 13:06:
I saw and examined the patient.
The Energy Auditor's note was reviewed and I agree with the note.
Comment:
Plan:
Continue IV diuresis with Lasix 40 mg IV twice daily. He was not taking Lasix prior to admission.
Weight is down another 4 pounds over the last 24 hours. 267 pounds 05/09.
Continue I's and O's, daily weights and creatinine.
TAVR versus SAVR workup ongoing.
CT surgery following.
Cardiac catheterization pending for Saturday, May 11, 2024.
Original Note:
Today's Communication / Plan
-
Continue diuresis
Continue Coreg 12.5mg BID
CM to assess cost of SGLT2 inhibitor
[facility] Friday 05/11
Impression / Plan
-
PCP: Dr. Misha Hong
Counter Former: None prior to admission, initially seen by Dr. Cheung
Assessment:
Presentation with abd bloating, LE edema
Acute HFpEF
Severe by echo 05/07/2024
LVH
HTN
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
History of past alcohol use
Obesity
ECHO 05/07/24: EF 55-60%, severe cLVH w/ septum (2.2cm) thicker than posterior wall (2.0cm), stage II diastolic dysfunction, severe with peak/mean gradients 87/56 mmHg, BEATRIZ 0.8 cm2
Plan:
-Presented with abdominal bloating and LE edema that had been progressing over the past 3-6 months. Admitted with acute HFpEF.
-Diuresing with IV lasix 40mg BID. Not on lasix prior to admission.
-Weight down another 4lbs overnight, down to 267lbs in AM 05/09.
-Creat remains stable overall at 1.1.
-Echo 05/07 with preserved EF with severe LVH and severe as noted above. CT surgery consulted and evaluation is ongoing.
-Plan is for [facility] on Saturday, 05/11. TAVR CT pending.
-Continue coreg. BP improved on higher dose 12.5mg BID.
-Case management to assess the cost of SGLT2 inhibitor.
Progress Note - Counter Former
Subjective
Date of Service: May 09, 2024
No complaints, feels breathing and edema are improving.
Objective
Labs:
05/09/24 06:15
05/09/24 06:15
Labs
Hgb 13.0 g/dL (13.0-18.0) 05/09/24 06:15
Hct 39.0 % (39.0-52.0) 05/09/24 06:15
Plt Count 233 10^3/uL (130-400) 05/09/24 06:15
Sodium 138 mmol/L (135-145) 05/09/24 06:15
Potassium 4.6 mmol/L (3.5-5.1) 05/09/24 06:15
BUN 23 mg/dl (9-20) H 05/09/24 06:15
Creatinine 1.1 mg/dL (0.7-1.3) 05/09/24 06:15
Glucose 131 mg/dl (70-99) H 05/09/24 06:15
Troponins
05/06/24 05/07/24
19:51 07:53
Troponin I 0.021 0.016
Vital Signs and I&O:
Vital Signs
Temp Pulse Resp BP Pulse Ox
97.8 F 82 21 125/82 97
05/09/24 07:00 05/09/24 07:00 05/09/24 07:00 05/09/24 07:00 05/09/24 07:55
Vital Signs
Temp Pulse Resp BP Pulse Ox
97.8 F 82 21 125/82 97
05/09/24 07:00 05/09/24 07:00 05/09/24 07:00 05/09/24 07:00 05/09/24 07:55
Intake & Output
05/07/24 05/08/24 05/09/24 05/10/24
06:59 06:59 06:59 06:59
Intake Total 480 / 480 1320 / 1320 480 / 480
Balance 480 / 480 1320 / 1320 480 / 480
Physical Exam
Physical Exam
GEN: No distress, awake, alert, oriented x3
HEENT: supple, anicteric, mmm
LUNGS: CTA b/l, no wheezes/rales
CV: Reg, S1/S2, 3/6 syst LSB
EXT: No clubbing, or cyanosis, +2 edema b/l LE
NEURO: Gross non-focal
SKIN: Warm, dry, no rash
--- NOTE | 2024-05-09 11:44 | CM ---
Patient seen bedside, CM inquiring if patient has insurance. Patient unsure, reports he gets social security. CM inquiring if patient has any insurance cards with him, patient reports he does not. CM inquired what pharmacy patient uses- patient
reports the [facility] [address], added to system. CM placed call to pharmacy to check cost of Jardiance 10 mg daily, unable to check cost until script is sent over. [facility]. CM will call pharmacy back to check cost of
medication. Per chart, patient for [facility] Saturday, 05/11. CM will continue to follow for all discharge planning needs.
Plan; home no needs when stable, will confirm cost of Jardiance with patients pharmacy.
[2024-05-09 12:06] LABS: Glucose - Point of Care 208 mg/dl (70-99)
[2024-05-09] MEDS: NOVOLOG FLEXPEN-LOW RESISTANCE 2 UNITS SC (12:13)
--- NOTE | 2024-05-09 13:45 | W.PN.HOSP.TC ---
Today's Communication/Plan
-
Continue IV diuretic, monitor I's and O's and weights
Consider SGLT2i and MRA for GDMT
ISS + metformin for new T2DM
SAVR versus TAVR per CT surgery
Assessment / Plan
Assessment / Plan
#Acute HFpEF
#Severe
-Decompensated heart failure due to valvular disease and hypertensive cardiomyopathy
-TTE here showed severe with peak/mean gradient 87/56, BEATRIZ 0.8, severe concentric hypertrophy
-Presents physiologically severe with reduced S2 and delayed carotid pulse
-Was started on IV Lasix 40 mg twice daily with net negative fluid balance and decreasing weight
-Planning for GDMT with SGLT2i if not cost prohibitive
-Continue IV Lasix, trend I's/O's and weights, BMP
-Plan for Jardiance tomorrow, possibly MRA if hemodynamics allow
-Cardiology and CT surgery following; Planning TAVR v. SAVR
#Hypertension with hypertensive heart disease
-Echo here showed severe concentric LVH in the context of hypertension
-Was not on any home medications, started on carvedilol 12.5 mg twice daily here
-Blood pressure is improved though still occasionally on the high side
-Would consider MRA such as spironolactone versus ARB/ACEi as second line agent
#T2DM
-New diagnosis; hemoglobin A1c 7.9%.
-Was started on ISS with Accu-Cheks, metformin BID
-Planning to add on SGLT2i if affordable
-No known microvascular diseases, plan for ACEi/ARB if possible fro nephroprotective quality
#Chronic lymphedema lower extremities
-Compression stockings
#Obesity with a BMI of 37
#History of past alcohol abuse
DVT prophylaxis: subcutaneous Lovenox
Diet: Low Cholesterol
CODE STATUS: Full code
Called Brother's number: Non working.
Anticipated Discharge: > 48 hours
Subjective/Interval History
-
Date of Service: May 09, 2024
Seen and examined at the bedside. No acute events reported overnight. AFVSS this morning.
He seems surprised that his aortic valve would need replaced, though it does seem that this has been told to him previously while here.
Denies any acute complaints including chest pain, dyspnea, lightheadedness, palpitations, fevers or chills, GI or urinary issues, bleeding or bruising, paresthesias, weakness
Objective Data
-
Labs:
Laboratory Results
05/09/24
06:15
WBC 9.2
Hgb 13.0
Hct 39.0
Plt Count 233
Sodium 138
Potassium 4.6
Chloride 96 L
Carbon Dioxide 31 H
BUN 23 H
Creatinine 1.1
Glucose 131 H
Calcium 9.4
Vital Signs:
Vital Signs
Temp Pulse Resp BP Pulse Ox
97.8 F 82 21 125/82 97
05/09/24 07:00 05/09/24 07:00 05/09/24 07:00 05/09/24 07:00 05/09/24 07:55
I&O
05/08/24 05/09/24 05/10/24
06:59 06:59 06:59
Intake Total 1320 / 1320 480 / 480 480 / 480
Balance 1320 / 1320 480 / 480 480 / 480
Review of Systems
-
History Source: Patient
All other systems: Reviewed and negative
Physical Exam
-
General: Well Developed, No Apparent Distress, Comfortable and Obese
HEENT: Normocephalic, Atraumatic and Moist Mucous Membranes
Respiratory: Non Labored Respirations and Decreased Breath Sounds (Bibasilar); Negative Wheezes, Rales, Rhonchi or Accessory Resp Muscle Use
Cardiac: Regular Rhythm, S1/S2 (Reduced S2), Murmur ([place], KERRI, best at RUSB) and Other (Delayed carotid upstroke); Negative Rub or Gallop
GI: Soft, Nontender, Nondistended and Normal Bowel Sounds
Musculoskeletal: No Clubbing, No Cyanosis and Other (2+ lower extremity edema)
Skin: Warm and Dry; Negative Rash
Neuro: AO x 3 and Nonfocal/Grossly Intact
Psych: Calm
Data Reviewed
-
Labs: Labs Reviewed by me, Discussed with Physician and Discussed with Patient
--- NOTE | 2024-05-09 14:10 | W.PN.UPDATE ---
Update Note
Progress Note Update
Patient continues workup for severe aortic stenosis.TAVR vs SAVR
Carotid ultrasound negative
TAVR CT complete, awaiting final read
Continue aggressive medical management for heart failure.
Plan for cardiac catheterization on Saturday
[2024-05-09 15:00] VITALS: BP 120/68
[2024-05-09 16:48] LABS: Glucose - Point of Care 139 mg/dl (70-99)
[2024-05-09] MEDS: LOVENOX 40 MG SC (16:57)
[2024-05-09 20:59] LABS: Glucose - Point of Care 148 mg/dl (70-99)
[2024-05-09 23:11] VITALS: BP 112/72
[2024-05-10 06:00] VITALS: BMI 36.1
[2024-05-10 07:13] LABS: % Basophils 0.4 % (0-2); % Eosinophils 2.1 % (0-6); % Immature Granulocytes 0.5 % (0-0.5); % Lymphocytes 23.4 % (20.5-51.1); % Monocytes 9.2 % (1.7-9.3); % Neutrophils 64.4 % (42.2-75.2); Absolute Eosinophils 0.2 10^3/uL (0-0.7); Absolute Lymphocytes 1.9 10^3/uL (1.2-3.4); Absolute Monocytes 0.7 10^3/uL (0.1-0.6); Absolute Neutrophils 5.2 10^3/uL (1.4-6.5); Hematocrit 38.3 % (39.0-52.0); Hemoglobin 12.8 g/dL (13.0-18.0); Mean Corp Hgb Conc. 33.4 g/dL (33.0-37.0); Mean Corpuscular Hgb 32.6 pg (27.0-31.0); Mean Corpuscular Volume 97.5 fL (80.0-94.0); Nucleated Red Blood Cells % 0 % (-); Platelet Count 208 10^3/uL (130-400); Red Blood Cell Count 3.93 10^6/uL (4.70-6.10); Red Cell Dist. Width 13.8 % (11.5-14.5); White Blood Cell Count 8.1 10^3/uL (4.8-10.8)
[2024-05-10 07:26] LABS: Glucose - Point of Care 130 mg/dl (70-99)
[2024-05-10 07:39] LABS: Blood Urea Nitrogen 27 mg/dl (9-20); Calcium 9.3 mg/dl (8.4-10.2); Carbon Dioxide 31 mmol/L (22-30); Chloride 96 mmol/L (98-107); Estimated Creatinine Clearance 91 ml/min; Glucose 130 mg/dl (70-99); Magnesium 1.8 mg/dl (1.6-2.3); Potassium 4.3 mmol/L (3.5-5.1); Sodium 138 mmol/L (135-145); eGFR > 60.00
[2024-05-10 07:49] VITALS: BP 122/74
[2024-05-10] MEDS: NOVOLOG FLEXPEN-LOW RESISTANCE SC (07:57)
[2024-05-10] MEDS: GLUCOPHAGE 500 MG PO ×2 (07:59→16:52)
[2024-05-10] MEDS: COREG 12.5 MG PO ×2 (07:59→19:49)
[2024-05-10] MEDS: MAGNESIUM OXIDE 500 MG PO (07:59)
[2024-05-10] MEDS: LASIX 40 MG IV ×2 (07:59→16:53)
[2024-05-10] MEDS: DESENEX/MITRAZOL/ZEASORB 1 APPLIC TOPICAL ×2 (08:00→19:49)
--- NOTE | 2024-05-10 11:15 | W.PN.CARDCBS ---
Today's Communication / Plan
-
Continue IV diuresis with Lasix 40 mg IV twice daily. He was not taking Lasix prior to admission.
Weight is down 5 pounds over the last 48 hours. 266 pounds 05/10.
Continue I's and O's, daily weights and creatinine.
TAVR versus SAVR workup ongoing.
TAVR CT performed
CT surgery following; carotid u/s negative
Cardiac catheterization pending for Saturday, May 11, 2024.
Creat remains stable overall at 1.1.
Continue coreg. BP improved on higher dose 12.5mg BID.
Case management to assess the cost of SGLT2 inhibitor.
Discussed with CT surgery.
Impression / Plan
-
.
PCP: Dr. Misha Hong
Fabrication Inspector: None prior to admission, initially seen by Dr. Cheung
Impression:
Presentation with abd bloating, LE edema
Acute HFpEF
Severe by echo 05/07/2024
LVH
HTN
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
History of past alcohol use
Obesity
ECHO 05/07/24: EF 55-60%, severe cLVH w/ septum (2.2cm) thicker than posterior wall (2.0cm), stage II diastolic dysfunction, severe with peak/mean gradients 87/56 mmHg, BEATRIZ 0.8 cm2
Plan:
Continue IV diuresis with Lasix 40 mg IV twice daily. He was not taking Lasix prior to admission.
Weight is down 5 pounds over the last 48 hours. 266 pounds 05/10.
Continue I's and O's, daily weights and creatinine.
TAVR versus SAVR workup ongoing.
TAVR CT performed
CT surgery following; carotid u/s negative
Cardiac catheterization pending for Saturday, May 11, 2024.
Creat remains stable overall at 1.1.
Continue coreg. BP improved on higher dose 12.5mg BID.
Case management to assess the cost of SGLT2 inhibitor.
Discussed with CT surgery.
Progress Note - Fabrication Inspector
Subjective
Date of Service: May 10, 2024
Pt seen and examined. No complaints. No chest pain or shortness of breath.
Objective
Labs:
05/10/24 06:51
05/10/24 06:51
Labs
Hgb 12.8 g/dL (13.0-18.0) L 05/10/24 06:51
Hct 38.3 % (39.0-52.0) L 05/10/24 06:51
Plt Count 208 10^3/uL (130-400) 05/10/24 06:51
Sodium 138 mmol/L (135-145) 05/10/24 06:51
Potassium 4.3 mmol/L (3.5-5.1) 05/10/24 06:51
BUN 27 mg/dl (9-20) H 05/10/24 06:51
Creatinine 1.1 mg/dL (0.7-1.3) 05/10/24 06:51
Glucose 130 mg/dl (70-99) H 05/10/24 06:51
Vital Signs and I&O:
Vital Signs
Temp Pulse Resp BP Pulse Ox
97.2 F 79 20 122/74 97
05/10/24 07:49 05/10/24 07:49 05/10/24 07:49 05/10/24 07:49 05/10/24 08:00
Vital Signs
Temp Pulse Resp BP Pulse Ox
97.2 F 79 20 122/74 97
05/10/24 07:49 05/10/24 07:49 05/10/24 07:49 05/10/24 07:49 05/10/24 08:00
Intake & Output
05/08/24 05/09/24 05/10/24 05/11/24
06:59 06:59 06:59 06:59
Intake Total 1320 / 1320 480 / 480 1200 / 1200
Balance 1320 / 1320 480 / 480 1200 / 1200
Physical Exam
Physical Exam
General: No acute distress, AAOX3
Neck: Negative JVD
Heart: Regular, Negative S3 positive S1/S2, Negative S4, No murmur
Lungs: CTA b/l, negative wheezes/rales/rhonchi
Abd: Positive BS, NT/ND, neg rebound/rigidity/guarding
Ext: Negative cyanosis/clubbing/edema
Neuro: nonfocal
--- NOTE | 2024-05-10 11:18 | W.PN.UPDATE ---
Update Note
Progress Note Update
Patient continues to undergo workup for TAVR versus SAVR.
Plan for cardiac catheterization tomorrow.
Continue to optimize medical management for CHF
Continue diuresis, weight has improved since admission
Patient's questions answered and understands need for further testing before discussing plan and timing.
[2024-05-10 11:46] LABS: Glucose - Point of Care 200 mg/dl (70-99)
--- NOTE | 2024-05-10 11:50 | W.PN.HOSP.TC ---
Today's Communication/Plan
-
[facility] tomorrow for TAVR/SAVR work-up
Continue IV diuretic BID
Consider acetazolamide
Trend weight and BMP
Assessment / Plan
Assessment / Plan
#Acute HFpEF
#Severe
-Decompensated heart failure due to valvular disease and hypertensive cardiomyopathy
-TTE here showed severe with peak/mean gradient 87/56, BEATRIZ 0.8, severe concentric hypertrophy
-Presents physiologically severe with reduced S2 and delayed carotid pulse
-Was started on IV Lasix 40 mg twice daily with net negative fluid balance and decreasing weight
-Warm and wet phenotype, on room air
Plan
-Planning for GDMT with SGLT2i and possible MRA if not cost prohibitive
-Continue IV Lasix BID, trend I's/O's and weights, BMP
-Cardiology and CT surgery following; Planning TAVR v. SAVR
-Consider acetazolamide for diuretic with alkalosis
#Hypertension with hypertensive heart disease
-Echo here showed severe concentric LVH in the context of hypertension
-Was not on any home medications, started on carvedilol 12.5 mg twice daily here
-Blood pressure is improved though still occasionally on the high side
-Would consider MRA such as spironolactone versus ARB/ACEi as second line agent
#T2DM
-New diagnosis; hemoglobin A1c 7.9%.
-Was started on ISS with Accu-Cheks, metformin BID
-Planning to add on SGLT2i if affordable
-No known microvascular diseases, plan for ACEi/ARB if possible fro nephroprotective quality
#Chronic lymphedema lower extremities
-Compression stockings
#Obesity with a BMI of 37
#History of past alcohol abuse
DVT prophylaxis: subcutaneous Lovenox
Diet: Low Cholesterol
CODE STATUS: Full code
Called Brother's number: Non working
Anticipated Discharge: > 48 hours
Subjective/Interval History
-
Date of Service: May 10, 2024
Seen and examined at the bedside. No acute events reported overnight. AFVSS this morning.
Continues to lose weight, down 1 kg from yesterday and net -9 kg since admission.
He denies any acute complaints
Objective Data
-
Labs:
Laboratory Results
05/10/24
06:51
WBC 8.1
Hgb 12.8 L
Hct 38.3 L
Plt Count 208
Sodium 138
Potassium 4.3
Chloride 96 L
Carbon Dioxide 31 H
BUN 27 H
Creatinine 1.1
Glucose 130 H
Calcium 9.3
Vital Signs:
Vital Signs
Temp Pulse Resp BP Pulse Ox
97.2 F 79 20 122/74 97
05/10/24 07:49 05/10/24 07:49 05/10/24 07:49 05/10/24 07:49 05/10/24 08:00
I&O
05/09/24 05/10/24 05/11/24
06:59 06:59 06:59
Intake Total 480 / 480 1200 / 1200
Balance 480 / 480 1200 / 1200
Review of Systems
-
History Source: Patient
All other systems: Reviewed and negative
Physical Exam
-
General: Well Developed, No Apparent Distress, Comfortable and Obese
HEENT: Normocephalic, Atraumatic and Moist Mucous Membranes
Respiratory: Clear to Auscultation and Non Labored Respirations
Cardiac: Regular Rhythm, S1/S2 (reduced to absent S2) and Murmur ([place] KERRI with delayed carotid pulse)
GI: Soft, Nontender, Nondistended and Normal Bowel Sounds
Musculoskeletal: No Clubbing, No Cyanosis and Other (1+ lower extremity edema)
Skin: Warm and Dry; Negative Rash
Neuro: AO x 3 and Nonfocal/Grossly Intact
Psych: Calm
Data Reviewed
-
Ultrasound: Report Reviewed by me and Discussed with Patient
Labs: Labs Reviewed by me and Discussed with Patient
[2024-05-10] MEDS: NOVOLOG FLEXPEN-LOW RESISTANCE 2 UNITS SC (11:58)
[2024-05-10 15:59] VITALS: BP 118/74
[2024-05-10 16:36] LABS: Glucose - Point of Care 157 mg/dl (70-99)
[2024-05-10] MEDS: NOVOLOG FLEXPEN-LOW RESISTANCE 1 UNITS SC (16:52)
[2024-05-10] MEDS: LOVENOX 40 MG SC (16:53)
[2024-05-10 20:39] LABS: Glucose - Point of Care 112 mg/dl (70-99)
[2024-05-10 23:19] VITALS: BP 116/69
[2024-05-11] VITALS (10 sets, daily range): BP systolic 102–131; BP diastolic 66–76; BMI 35.8
[2024-05-11 07:27] LABS: Glucose - Point of Care 119 mg/dl (70-99)
[2024-05-11] MEDS: NOVOLOG FLEXPEN-LOW RESISTANCE SC ×3 (07:41→16:38)
[2024-05-11] MEDS: COREG 12.5 MG PO ×2 (07:42→20:25)
[2024-05-11] MEDS: LASIX 40 MG IV ×2 (07:43→16:39)
[2024-05-11] MEDS: GLUCOPHAGE 500 MG PO ×2 (07:43→16:39)
[2024-05-11] MEDS: MAGNESIUM OXIDE 500 MG PO (07:46)
[2024-05-11] MEDS: DESENEX/MITRAZOL/ZEASORB 1 APPLIC TOPICAL ×2 (07:48→20:25)
--- NOTE | 2024-05-11 08:10 | W.PN.HOSP.TC ---
Documented by User: Mag Downey DO, Resident 05/11/24 12:39
Today's Communication/Plan
-
L heart Cath today
Assessment / Plan
Assessment / Plan
63-year-old male medical history of HTN presenting with LE edema and abdominal distention, which has been progressing over the last year. Echo showed EF 55-60%, stage II dysfunction and severe .
#Acute HFpEF with severe aortic stenosis
Likely secondary to valvular disease and hypertensive cardiomyopathy
Transthoracic echo showed severe with BEATRIZ 0.8, severe concentric hypertrophy
Continue IV Lasix 40 mg BID, monitor IOs
Planning for GDMT with SGLT2i, however per case management occasion likely $200 a month [id number] due to no prescription coverage. Consider spirinolactone instead if SGLTi is not an option
Cardiology and CT surgery on board, considering TAVR versus SAVR. L heart cath today.
Consider addition of acetazolamide
#Hypertension with hypertensive heart disease
Echo showed severe concentric LVH with hypertension
Continue carvedilol 12.5 twice daily
Continue to monitor blood pressure
Consider spironolactone versus LEWIS/ARB a second line agent
#T2DM
Hemoglobin A1c 7.9, newly diagnosed during admission
Continue ISS with Accu-Cheks and metformin twice a day
Consider adding SGLT2i if affordable, per case management medication likely $200 a month
#Chronic lymphedema lower extremities
Continue use of compression stockings
#Obesity with a BMI of 37
#History alcohol use disorder
DVT prophylaxis: subcutaneous Lovenox
Diet: Low Cholesterol
CODE STATUS: Full code
Anticipated Discharge: > 48 hours
Subjective/Interval History
-
Date of Service: May 11, 2024
63-year-old male medical history of HTN presenting with LE edema and abdominal distention, which has been progressing over the last year. Echo showed EF 55-60%, stage II dysfunction and severe . Patient reports no acute overnight events. Patient
reports no shortness of breath, chest pain, nausea, vomiting, diarrhea, headaches or lower extremity pain or edema. He seems slightly confused/unsure why a procedure was being done by cardiology/CT.
Objective Data
-
Labs:
Laboratory Results
05/11/24
06:45
Sodium Pending
Potassium Pending
Chloride Pending
Carbon Dioxide Pending
BUN Pending
Creatinine Pending
Glucose Pending
Calcium Pending
Vital Signs:
Vital Signs
Temp Pulse Resp BP Pulse Ox
97.4 F 76 18 131/76 96
05/11/24 07:53 05/11/24 07:53 05/11/24 07:53 05/11/24 07:53 05/11/24 07:53
I&O
05/10/24 05/11/24 05/12/24
06:59 06:59 06:59
Intake Total 1200 / 1200 960 / 960
Balance 1200 / 1200 960 / 960
Review of Systems
-
History Source: Patient
Constitutional: Reports No Symptoms
Respiratory: Reports No Symptoms
Cardiac: Reports No Symptoms
Abdomen/GI: Reports No Symptoms
Musculoskeletal: Reports No Symptoms
Physical Exam
-
General: Well Developed, Well Nourished, No Apparent Distress, Comfortable, Conversant and Obese
HEENT: Normocephalic and Atraumatic
Respiratory: Clear to Auscultation
Cardiac: Regular Rhythm and S1/S2
GI: Soft, Nontender and Nondistended
Musculoskeletal: No Clubbing, No Cyanosis, Edema, Right Lower Extrem and Edema, Left Lower Extrem
Skin: Warm and Dry
Neuro: AO x 3
Psych: Calm
Data Reviewed
-
Diagnostic Radiology: Report Reviewed by me
CT Scan: Report Reviewed by me
Ultrasound: Report Reviewed by me
Labs: Labs Reviewed by me and Discussed with Physician
Old Records: Reviewed

Documented by User: Bassem Kelly DO 05/11/24 13:09
Today's Communication/Plan
-
L heart Cath today
Consider acetazolamide for additional diuresis
[2024-05-11 08:41] LABS: Blood Urea Nitrogen 33 mg/dl (9-20); Calcium 9.2 mg/dl (8.4-10.2); Carbon Dioxide 34 mmol/L (22-30); Chloride 94 mmol/L (98-107); Estimated Creatinine Clearance 83 ml/min; Glucose 112 mg/dl (70-99); Magnesium 1.9 mg/dl (1.6-2.3); Potassium 4.1 mmol/L (3.5-5.1); Sodium 138 mmol/L (135-145); eGFR > 60.00
--- NOTE | 2024-05-11 09:24 | CM ---
Chart reviewed. Sin check for Jardiance and Farxiga attempted. Per pharmacy, pt does not have insurance listed.
Pt currently has HRSI-MA pending, therefore, pt does not have prescription coverage at this time. CM explored [employer] for discounted prices. For Jardiance, sin is close to $600 and Farxiga $328 at preferred [facility] pharmacy.
Made physician resident aware. Per resident, will discuss w/ hospitalist during rounds.
Free 14 day trial coupon for Jardiance is available for pt if needed.
Plan: Home; no needs anticipated
--- NOTE | 2024-05-11 10:38 | PN.DE ---
Diabetes Education
- -
[facility]Y MATTA [facility] 1960 [id number]
05/08/24 14:19 - Patient Care Note by Apple Muniz RN
Acct Num: [id number] : 1960 Patient Age: 64
Met with Mr. Matta to educate him on blood glucose monitoring. Mr. Matta demonstrated proper set up and use of the Contour Next Ez glucometer. We discussed importance of monitoring blood sugar twice a day; fasting, 2 hours post meal daily (alternate
meal) and as needed based on provider recommendations. I provided Mr. Matta with a form to record his numbers and a note in his chart to order Contour next test strips and microlet lancets prior to his discharge. Safe sharp disposal was also
discussed.
Initialized on 05/08/24 14:19 - END OF NOTE
Followed up with Mr. Matta to see if he had any questions regarding his glucometer. He denied having any concerns and stated he did use it over the weekend with the nurse.
[2024-05-11 11:31] LABS: Glucose - Point of Care 145 mg/dl (70-99)
--- NOTE | 2024-05-11 14:03 | PTCARENOTE ---
05/11- Took out 4 Aspirin 81mgs for Cath Nurse Radha who will administer it under their orders. Patient taken to cath by Cath nurses without issue.
--- NOTE | 2024-05-11 14:46 | W.PN.UPDATE ---
Update Note
Progress Note Update
I met with Mr. Rice at the bedside. 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 His coronary CTA (TAVR) to my crude measurement looks amenable to a large size surgical valve and
TAVR valve. He is pending [facility] right now. Should it not demonstrate or reveal any significant CAD, I would be inclined to offer him a TAVR valve after discussing it with our our structural team. He does not have a social support system, and I worry
his recover will be complicated given his body habitus and history of TBI. We will discuss his case once his TAVR reconstructed images are back. Should something make him a less than favorable TAVR candidate, then certainly I would move forward with
surgical replacement.
--- NOTE | 2024-05-11 15:10 | PTCARENOTE ---
- Patient returned from Manager Pricing without issue. AAOX3; R-radial pulse + with +sensation/full ROM; R-hand is cool pale but <2sec cap refill. Patient educated on post-cath care, applying no pressure or gripping with RUE at all. He
verbalized understanding.
--- NOTE | 2024-05-11 16:16 | ITS.CL.CATH ---
Social Economist - Catheterization
Cardiac Catheterization
Procedure Report:
LEFT HEART CATHETERIZATION
Date of Procedure: May 11, 2024
Referring: Dr. Octavio Cheung
PROCEDURES:
1. Left heart catheterization with coronary angiography
INDICATION: Severe symptomatic aortic stenosis
ACCESS: Right radial artery, 6 [place] sheath
HEMODYNAMICS : (mmHg)
AO (s/d) : 105/75
LV (s/d) : 166/11
LVEDP : 19
AORTIC VALVE:
Mean gradient: 46 mmHg
CORONARY FINDINGS
DOMINANCE: Right
LEFT MAIN: Normal
LEFT ANTERIOR DESCENDING: The LAD arises normally from the left main and runs in the anterior interventricular groove. The LAD supplies a bifurcating first diagonal branch. The mid LAD beyond the diagonal branch has minor irregularities with no
focal obstructive stenosis
RAMUS: Moderate caliber ramus intermedius arises from the left main and is widely patent
CIRCUMFLEX: The circumflex is a medium caliber nondominant vessel giving rise to a moderate size OM1 and terminating in a moderate-sized OM 2
RIGHT CORONARY ARTERY: The right coronary artery is a dominant vessel with only minor irregularities over its course. The PDA is widely patent. The posterolateral branch is small
VENTRICULOGRAPHY: Left ventriculography is performed in an OCONNOR projection. The digital single-plane left ventricular ejection fraction is visually estimated at 50-55%
RADIATION SUMMARY: Fluoro Time (min): 3.7, Dose (mGy): 444, DAP (Gy.cm2) : 34.0
Closure Device: TR band
CONCLUSIONS
1. Nonobstructive coronary disease
2. Severe symptomatic aortic stenosis with mean aortic valve gradient of 46 mmHg
RECOMMENDATIONS
1. Continued evaluation for transcatheter versus surgical aortic valve replacement
Copy to: Dr. Damaso Cortez, Dr. Octavio Styles
[2024-05-11 16:36] LABS: Glucose - Point of Care 143 mg/dl (70-99)
[2024-05-11] MEDS: LOVENOX 40 MG SC (16:40)
[2024-05-11 21:09] LABS: Glucose - Point of Care 146 mg/dl (70-99)
[2024-05-12 03:30] VITALS: BP 118/69
[2024-05-12 06:00] VITALS: BMI 35.6
[2024-05-12] MEDS: NOVOLOG FLEXPEN-LOW RESISTANCE SC (07:19)
--- NOTE | 2024-05-12 07:19 | W.PN.HOSP.TC ---
Addendum entered and electronically signed by Megha Means MD 05/12/24 13:38:
I saw and evaluated the patient independently. I reviewed the resident�s note and agree with findings and plan as documented by Dr. Downey.
GENERAL: well developed, well nourished, male in no apparent distress
HEENT: NC/AT
HEART: regular rate and rhythm, +S1, +S2--tight high pitched KERRI
LUNGS : clear to auscultation bilaterally
ABDOM: soft, nontender, nondistended, + bowel sounds
EXT: no cyanosis, clubbing--2+ LE edema bilaterally
NEUROLOGIC: grossly intact
Acute HFpEF with severe aortic stenosis--ECHO with severe , valve area 0.8--Likely secondary to valvular disease and hypertensive cardiomyopathy--apprec CT surgery--social situation limits next steps--pt has a brother Misha [phone] (I did
not speak with him)--pt chooses to isolate and live by himself, apparently as per CM he has HRSI-MA pending--cannot afford meds--would leave up to CT surgery to decide if appropriate candidate for new heart valve with minimal social supports and
cannot afford medications--cont lasix 40 mg BID, consider aldactone--Consider addition of acetazolamide, would defer to Cards for final decision--apprec cards/CT surg--FU OP for TAVR evaluation 05/27.
Essential Hypertension with hypertensive heart disease--Echo showed severe concentric LVH with hypertension--Continue carvedilol 12.5 twice daily, lasix twice daily
type 2 DM--Hemoglobin A1c 7.9, newly diagnosed during admission--Continue ISS with Accu-Cheks and metformin twice a day
Chronic lymphedema lower extremities--Continue use of compression stockings
Obesity with a BMI of 37--affects all aspects of care
History alcohol use disorder
DVT prophylaxis-subcutaneous Lovenox
code status--Full code
OK for d/c from medical perspective--CT surgery will need to determine appropriateness for valve replacement
Original Note:
Today's Communication/Plan
-
Patient to follow-up on 05/27 for TAVR. Patient currently experiencing helplessness and living in skilled nursing, awaiting case management final recommendations to ensure patient has adequate resources prior to discharge.
Assessment / Plan
Assessment / Plan
63-year-old male medical history of HTN presenting with LE edema and abdominal distention, which has been progressing over the last year. Echo showed EF 55-60%, stage II dysfunction and severe .
#Acute HFpEF with severe aortic stenosis
Likely secondary to valvular disease and hypertensive cardiomyopathy
Transthoracic echo showed severe with BEATRIZ 0.8, severe concentric hypertrophy
Continue IV Lasix 40 mg BID, monitor IOs
Planning for GDMT with SGLT2i, however per case management occasion likely $200 a month [id number] due to no prescription coverage. Consider spirinolactone instead if SGLTi is not an option
Consider addition of acetazolamide, defer to Cards for final decision
Cardiology and CT surgery on board, L heart cath 05/11 showed severe . FU OP for TAVR 05/27.
#Hypertension with hypertensive heart disease
Echo showed severe concentric LVH with hypertension
Continue carvedilol 12.5 twice daily
Continue to monitor blood pressure
Consider spironolactone versus LEWIS/ARB a second line agent
#T2DM
Hemoglobin A1c 7.9, newly diagnosed during admission
Continue ISS with Accu-Cheks and metformin twice a day
Consider adding SGLT2i if affordable, per case management medication likely $200 a month
#Chronic lymphedema lower extremities
Continue use of compression stockings
#Obesity with a BMI of 37
#History alcohol use disorder
DVT prophylaxis-subcutaneous Lovenox
Full code
Anticipated Discharge: Within 24 hours
Subjective/Interval History
-
Date of Service: May 12, 2024
63-year-old male medical history of HTN presenting with LE edema and abdominal distention, which has been progressing over the last year. Echo showed EF 55-60%, stage II dysfunction and severe . Left heart catheterization on 05/11 showed severe
aortic stenosis. Patient reports no overnight events. Patient stable for discharge and will follow-up with cardiothoracic surgery next month however due to housing status, awaiting case management to ensure that patient has adequate resources for
follow-up.
Objective Data
-
Labs:
Laboratory Results
05/12/24
06:00
WBC Pending
Hgb Pending
Hct Pending
Plt Count Pending
Sodium Pending
Potassium Pending
Chloride Pending
Carbon Dioxide Pending
BUN Pending
Creatinine Pending
Glucose Pending
Calcium Pending
Vital Signs:
Vital Signs
Temp Pulse Resp BP Pulse Ox
97.6 F 77 16 118/69 96
05/12/24 03:30 05/12/24 03:30 05/12/24 03:30 05/12/24 03:30 05/12/24 03:30
I&O
05/11/24 05/12/24 05/13/24
06:59 06:59 06:59
Intake Total 960 / 960
Balance 960 / 960
Review of Systems
-
History Source: Patient
All other systems: Reviewed and negative
Physical Exam
-
General: Well Developed, No Apparent Distress, Comfortable and Conversant
HEENT: Normocephalic and Atraumatic
Respiratory: Clear to Auscultation
Cardiac: S1/S2 and Murmur
GI: Soft, Nontender, Nondistended and Normal Bowel Sounds
Musculoskeletal: Edema, Right Lower Extrem and Edema, Left Lower Extrem
Skin: Warm and Dry
Neuro: AO x 3
Psych: Calm
Data Reviewed
-
Diagnostic Radiology: Report Reviewed by me
CT Scan: Report Reviewed by me
Ultrasound: Report Reviewed by me
Labs: Labs Reviewed by me and Discussed with Physician
Old Records: Reviewed
[2024-05-12 07:20] LABS: Glucose - Point of Care 125 mg/dl (70-99)
[2024-05-12] MEDS: GLUCOPHAGE 500 MG PO (07:20)
[2024-05-12] MEDS: LASIX 40 MG IV (07:20)
[2024-05-12] MEDS: MAGNESIUM OXIDE 500 MG PO (07:20)
[2024-05-12] MEDS: COREG 12.5 MG PO (07:20)
[2024-05-12] MEDS: DESENEX/MITRAZOL/ZEASORB 1 APPLIC TOPICAL (07:22)
[2024-05-12 07:43] VITALS: BP 128/77
[2024-05-12 08:40] LABS: % Basophils 0.7 % (0-2); % Eosinophils 1.7 % (0-6); % Immature Granulocytes 0.1 % (0-0.5); % Lymphocytes 24.9 % (20.5-51.1); % Monocytes 9.9 % (1.7-9.3); % Neutrophils 62.7 % (42.2-75.2); Absolute Basophils 0.1 10^3/uL (0-0.2); Absolute Eosinophils 0.1 10^3/uL (0-0.7); Absolute Lymphocytes 1.8 10^3/uL (1.2-3.4); Absolute Monocytes 0.7 10^3/uL (0.1-0.6); Absolute Neutrophils 4.5 10^3/uL (1.4-6.5); Hematocrit 40.8 % (39.0-52.0); Hemoglobin 13.2 g/dL (13.0-18.0); Mean Corp Hgb Conc. 32.4 g/dL (33.0-37.0); Mean Corpuscular Hgb 31.7 pg (27.0-31.0); Mean Corpuscular Volume 98.1 fL (80.0-94.0); Mean Platelet Volume 10.3 fL (7.4-10.4); Nucleated Red Blood Cells % 0 % (-); Platelet Count 228 10^3/uL (130-400); Red Blood Cell Count 4.16 10^6/uL (4.70-6.10); Red Cell Dist. Width 13.8 % (11.5-14.5); White Blood Cell Count 7.1 10^3/uL (4.8-10.8)
[2024-05-12 08:57] LABS: Blood Urea Nitrogen 35 mg/dl (9-20); Calcium 9.5 mg/dl (8.4-10.2); Carbon Dioxide 28 mmol/L (22-30); Chloride 94 mmol/L (98-107); Estimated Creatinine Clearance 83 ml/min; Glucose 110 mg/dl (70-99); Potassium 4.4 mmol/L (3.5-5.1); Sodium 138 mmol/L (135-145); eGFR > 60.00
[2024-05-12 11:00] LABS: NT-proBNP 524 pg/ml
[2024-05-12 11:34] LABS: Glucose - Point of Care 344 mg/dl (70-99)
[2024-05-12 11:43] VITALS: BP 118/70
[2024-05-12] MEDS: NOVOLOG FLEXPEN-LOW RESISTANCE 4 UNITS SC (11:44)
--- NOTE | 2024-05-12 13:58 | W.PN.CARDCBS ---
Today's Communication / Plan
-
Added aspirin and statin
Might need inpatient CT and dental clearance
Impression / Plan
-
PCP: Dr. Misha Hong
Loan Review Officer: None prior to admission, initially seen by Dr. Cheung
Impression:
Admitted with bloating and LE edema 05/06/24
Acute HFpEF
Severe by echo 05/07/2024
LVH
HTN
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
History of past alcohol use
Obesity
Nonobstructive CAD by cath 05/11/24
ECHO 05/07/24: EF 55-60%, severe cLVH w/ septum (2.2cm) thicker than posterior wall (2.0cm), stage II diastolic dysfunction, severe with peak/mean gradients 87/56 mmHg, BEATRIZ 0.8 cm2
Plan:
-Weight is down 16 lbs this admission with Lasix 40 mg IV BID. Patient was not taking a loop diuretic prior to admission. Recommend Lasix 40 mg PO BID at time of d/c
-EF 55% by echo, but severe . Patient being considered for SAVR vs TAVR. He does not have health insurance.
-TT to TAVR team to see what his next steps will be given lack of insurance and need for outpatient CT as part of work-up. Patient might have an inpatient work-up due to social situation and lack of insurance.
-Patient had nonobstructive CAD by cath 05/11/24
-Will need dental clearance as well and he does not see a dentist regularly.
-New to Coreg 12.5 mg BID
-New to atorvastatin 20 mg daily
-Will start aspirin 81 mg daily
Progress Note - Loan Review Officer
Subjective
Date of Service: May 12, 2024
No chest pain
Objective
Labs:
05/12/24 07:33
05/12/24 07:33
Labs
Hgb 13.2 g/dL (13.0-18.0) 05/12/24 07:33
Hct 40.8 % (39.0-52.0) 05/12/24 07:33
Plt Count 228 10^3/uL (130-400) 05/12/24 07:33
Sodium 138 mmol/L (135-145) 05/12/24 07:33
Potassium 4.4 mmol/L (3.5-5.1) 05/12/24 07:33
BUN 35 mg/dl (9-20) H 05/12/24 07:33
Creatinine 1.2 mg/dL (0.7-1.3) 05/12/24 07:33
Glucose 110 mg/dl (70-99) H 05/12/24 07:33
Vital Signs and I&O:
Vital Signs
Temp Pulse Resp BP Pulse Ox
98.0 F 82 18 118/70 94
05/12/24 11:43 05/12/24 11:43 05/12/24 11:43 05/12/24 11:43 05/12/24 11:43
Vital Signs
Temp Pulse Resp BP Pulse Ox
98.0 F 82 18 118/70 94
05/12/24 11:43 05/12/24 11:43 05/12/24 11:43 05/12/24 11:43 05/12/24 11:43
Intake & Output
05/10/24 05/11/24 05/12/24 05/13/24
06:59 06:59 06:59 06:59
Intake Total 1200 / 1200 960 / 960
Balance 1200 / 1200 960 / 960
Physical Exam
Physical Exam
GEN: AAOx3
HEENT: mmm
LUNGS: No audible wheeze
CV: SR on tele
ABD: ND
EXT: No edema B/L
NEURO: Gross non-focal
SKIN: No rash
--- NOTE | 2024-05-12 14:04 | W.DCSUMMARY ---
Addendum entered and electronically signed by Megha Means MD 05/12/24 14:56:
Read, reviewed, and agree. See same day progress note for additional details. Time spent coordinating care, DC planning, review of DC plan of care with resident, transition of care, review of records in EMR, med rec, consults, notes, d/w
consultants, nursing, family, and CM = 50 minutes
Based on patient's social situation, CT surgery will need to determine appropriateness of valve replacement. Will defer to them. Follow up was given to the patient.
Original Note:
Discharge Summary
Discharge Data
Date of Admission: 05/08/24
Date of Discharge: 05/12/24
Total time spent discharging patient (in min): 50
-
Pending Results: No
Hospital Course
Presenting symptom: Dyspnea
Hospital diagnosis: Acute HFpEF with severe aortic stenosis
Hospital course:63-year-old male medical history of HTN presenting with LE edema and abdominal distention, which has been progressing over the last year. Echo showed EF 55-60%, stage II dysfunction and severe . TTE showed severe aortic stenosis
with BEATRIZ of 0.8 with severe concentric hypertrophy. Patient underwent left heart catheterization on 05/11 which showed none obstructive coronary disease and severe symptomatic aortic stenosis with mean aortic valve gradient of 46 mmHg.
Recommendations made by cardiology and cardiothoracic surgery to consider TAVR as the best procedure for patient. During admission, patient was diuresed with Lasix and lost 10 kg. Per case management, patient has HRSI-MA pending and has difficulty
affording medications as well as experiences housing instability, making care slightly more challenging. Patient was given housing resources by case management prior to discharge. Patient was also given business card of resident run clinic.
Patient was resistant to sharing where he would go after leaving the hospital, however since no other medical management is needed at the moment and patient is stable, will discharge.
#Acute HFpEF with severe aortic stenosis
Continue GDMT. Start oral Lasix 40 mg twice daily. Follow-up with cardiac surgery on 05/27 for TAVR.
#Hypertension with hypertensive heart disease
Continue carvedilol and consider spironolactone versus LEWIS/ARB a second line agent in the future.
#T2DM
Hemoglobin A1c 7.9, newly diagnosed during admission. Continue metformin twice daily.
#Chronic lymphedema lower extremities
Continue use of compression stockings
#Obesity with a BMI of 37
#History alcohol use disorder
-----
Imaging reviewed during admission:
Echo 05/07:
CONCLUSIONS
Normal left ventricular size and systolic function. No regional wall motion
abnormalities are seen. LV ejection fraction is 55-60% by Velasco's method of
discs. Severe concentric left ventricular hypertrophy with septum (2.2 cm)
thicker than posterior wall (2.0 cm). Stage II diastolic dysfunction suggestive
of abnormal relaxation and increased filling pressures.
Normal right ventricular size. Normal right ventricular systolic function.
Severe aortic stenosis. Peak/mean gradients are 87/56 mmHg. The valve area by
continuity equation is 0.8 cm sq.
Chest x-ray 05/06:
IMPRESSION:
Small bilateral pleural effusions. Suspected mild pulmonary vascular congestion. Cardiomegaly.
Orthopantogram 05/07:
FINDINGS/IMPRESSION:
Dental amalgam and a few dental caries are noted. No periapical lucencies appreciated. The maxilla and mandible are intact.
Coronary angio CT 05/08:
IMPRESSION:
Minimal heterogeneous opacity in the medial right lung base, likely partial atelectasis
3 mm right middle lobe nodule. If the patient has elevated risk of lung cancer, follow-up chest CT in one year would be recommended. The [facility] Pulmonary Nodule Advisory Board will be automatically informed of the finding.
Evidence of pulmonary emphysema
Nonspecific lytic lesions in the left L1 pedicle and C7 vertebral body. Possible etiologies include benign hemangiomas or malignancy. Cervical and lumbar spine MRI exams suggested for further evaluation
Low-attenuation lesion in each thyroid lobe. Correlation with thyroid ultrasound recommended.
Vascular ultrasound 05/08:
IMPRESSION: Calcified plaque is identified bilaterally in the internal carotid arteries however the carotid velocity profiles bilaterally are consistent with less than 50% internal carotid artery stenosis. Vertebral artery flow is antegrade
bilaterally.
Discharge Plan
-
Patient Disposition: Home (Routine Discharge)
Diet: As tolerated
Activity: As tolerated
Driving Restrictions: As prior to admission
Bathing Restrictions: None
Instructions: *PCP/Other Machine [employer] Heart Failure Instructions
Referrals:
Misha Hong MD [Family Provider] - in one to two weeks
Damaso Cortez MD [Active] - 05/27/24 11:00 am (discuss TAVR option)
Prescriptions:
New
Jardiance 10 mg tablet
10 mg PO DAILY 30 Days Qty: 30 0RF
carvedilol 12.5 mg Tablet
12.5 mg PO BID 30 Days Qty: 60 0RF
metformin 500 mg Tablet
500 mg PO BID@0800,1700 30 Days Qty: 60 0RF
atorvastatin 20 mg Tablet
20 mg PO QPM Qty: 90 0RF
furosemide [Lasix] 40 mg tablet
40 mg PO BID Qty: 180 2RF
Discharge Orders:
Discharge Patient (As Directed); Ordered 05/12/24
Ordered By: Mag Downey
Discharge Date and Time
Print Language: EMIRATI
--- NOTE | 2024-05-12 14:13 | CM ---
Addendum entered by Alessandro Yin 05/12/24 15:16:
Pt d/c home w/ instructions to follow up w/ medical team to determine TAVR procedure.
Pt provided resident clinic. Pt resistant to sharing where he will be going at d/c.
Original Note:
Per physician resident, pt experiencing homelessness. HRSI-MA pending still.
CM spoke w/ [facility] [place], as detention is listed as pt's address. Per Phoebe, pt was there a few years ago but currently does not stay there.
CM met w/ pt bedside to discuss safe d/c plan. Pt confirmed he was at the detention before. CM asked pt if he is open to exploring going to a detention again, pt stated he would consider. CM discussed where pt resided prior to coming to the hospital, pt
stated he was staying w/ a friend in their apartment. CM asked if he could return at d/c, pt stated he may be able to but isn't sure. CM encouraged pt to call his friend to see if he can return, pt denied this stating his friend wouldn't allow him
to return. Per pt he drove himself to , CM asked pt when he d/c back to [place], where he is driving to, pt stated 'somewhere'. CM discussed the need to ensure he has a place to stay as the goal is to have a safe d/c. Pt did not seem aware of
the conversation.
CM met w/ pt's brother Misha. Per Misha, pt isolates himself for long periods of time and he would not hear from him. Per Misha, pt only calls him when he needs something or is in trouble. Last time Misha seen pt was over the summer when pt lost
his wallet. Misha stated he constantly asks pt what does he need as a way to be able to support him, however, pt cont to disengage and not accept support. Per Misha, pt has been living this way, (in between shelters, living in his car and bouncing
around friends' homes) for two decades. Per Misha, pt essentially is choosing to not live at a permanent residence or receive family support. Pt is able to afford a hotel room per Misha if needed as he sends him money every month.
Discussed pt's follow up appt and the uncertainty that pt will follow through w/ appt. Per Misha, he believes pt will not understand or have a sense of urgency to his current health condition.
Per resident note, is medically stable to d/c. Awaiting CT surg to determine appropriateness on valve replacement considering MA laura pending and inability to afford meds.
Plan: D/c pending CT surg recommendations
[2024-05-12] MEDS: LASIX IV (14:57)
[2024-05-12] MEDS: LOW STRENGTH ASPIRIN 81 MG PO (14:59)
== END 2024-05-12 15:47 | disposition home or self-care (01) | DRG 286 ==
LOC: 4 WEST ACU 11:39
PROVIDERS: Emergency Medicine; Hospitalist; Internal Medicine; Internal Medicine Cardiovascular Disease; Internal Medicine Interventional Cardiology; Physician Assistant; Physician Assistant Surgical; ADMITTING PHYSICIAN Hospitalist; ATTENDING PHYSICIAN Internal Medicine; EMERGENCY PHYSICIAN Emergency Medicine; FAMILY PHYSICIAN Family Medicine; OTHER PHYSICIAN Internal Medicine Cardiovascular Disease; OTHER PHYSICIAN Thoracic Surgery (Cardiothoracic Vascular Surgery)
PROC: B2111ZZ Fluoroscopy of Multiple Coronary Arteries using Low Osmolar Contrast (ICD-10-PCS; 2024-05-11)
PROC: B2151ZZ Fluoroscopy of Left Heart using Low Osmolar Contrast (ICD-10-PCS; 2024-05-11)
PROC: 4A023N7 Measurement of Cardiac Sampling and Pressure, Left Heart, Percutaneous Approach (ICD-10-PCS; 2024-05-11)
DX: I11.0 Hypertensive heart disease with heart failure (principal); I50.33 Acute on chronic diastolic (congestive) heart failure; Z59.819 Housing instability, housed unspecified; E87.3 Alkalosis; E11.9 Type 2 diabetes mellitus without complications; E66.01 Morbid (severe) obesity due to excess calories; Z68.38 Body mass index [BMI] 38.0-38.9, adult; I35.0 Nonrheumatic aortic (valve) stenosis; I89.0 Lymphedema, not elsewhere classified; I43 Cardiomyopathy in diseases classified elsewhere; I25.10 Atherosclerotic heart disease of native coronary artery without angina pectoris; Z87.828 Personal history of other (healed) physical injury and trauma
CPT/HCPCS: 70355; 71046; 75572; 80048; 80053; 80061; 82248; 82962; 83036; 83690; 83735; 83880; 84484; 85025; 85027; 93005; 93306; 93458; 93880; 94060; 96374; 99285; C1894; Q9967

== ENCOUNTER → 2024-05-27 12:09 | Outpatient (REF) | payer OTHER, SELFPAY ==
[2024-05-27 14:16] LABS: Blood Urea Nitrogen 22 mg/dl (9-20); Calcium 9.4 mg/dl (8.4-10.2); Carbon Dioxide 31 mmol/L (22-30); Chloride 100 mmol/L (98-107); Glucose 143 mg/dl (70-99); Potassium 4.3 mmol/L (3.5-5.1); Sodium 141 mmol/L (135-145); eGFR > 60.00
== END ==
LOC: REG 12:09
PROVIDERS: ATTENDING PHYSICIAN Nurse Practitioner Acute Care; FAMILY PHYSICIAN Family Medicine
DX: I35.0 Nonrheumatic aortic (valve) stenosis (principal)
CPT/HCPCS: 36415; 80048

== ENCOUNTER → 2024-06-05 11:50 | Outpatient (REF) | payer OTHER, SELFPAY | LOC: RAD 11:50 | PROVIDERS: ATTENDING PHYSICIAN Nurse Practitioner Acute Care | DX: I35.0 Nonrheumatic aortic (valve) stenosis (principal) | CPT/HCPCS: 74174; Q9967 ==